=== PATIENT | male | born 1935 | race Two or more races ===

== ENCOUNTER 2017-01-27 11:12 | Inpatient (IN) | payer MEDICARE, MEDICAID ==
[~2017-01-27] VITALS: Ht 175.3 cm; Wt 80.3 kg
[2017-01-27] VITALS (36 sets, daily range): BP systolic 73–160; BP diastolic 35–87
--- NOTE | 2017-01-27 11:18 | NUR ---
PT BIB FAMILY TO ER BED 10. C/O BLACK STOOL THAT STARTED LAST WEEK. ALSO C/O BLE PAIN. DENIERS TRAUMA. GOWNED AND PLACED ON MONITOR. STABLE VITALS ROLLED SEAT TRIMMER. AWAITING MD LESLIE.
--- NOTE | 2017-01-27 11:40 | NUR ---
DR LOZADA AT BEDSIDE FOR EVAL.
--- NOTE | 2017-01-27 11:45 | NUR ---
IV LINE STARTED BLOOD DRAWN AND SENT TO LAB.
[2017-01-27 11:54] LABS: BASOPHILS # (AUTO) 0.1 /CMM (0.0-0.2); BASOPHILS % (AUTO) 0.7 % (0.0-2.0); EOSINOPHILS # (AUTO) 0.1 /CMM (0.0-0.7); EOSINOPHILS % (AUTO) 1.7 % (0.0-6.0); LYMPHOCYTES # (AUTO) 0.8 /CMM (0.8-4.8); LYMPHOCYTES % (AUTO) 9.8 % (20.0-44.0); MEAN CORPUSCULAR HEMOGLOBIN 26 PG (26.0-33.0); MEAN CORPUSCULAR HGB CONC 33 g/dl (31.0-36.0); MEAN CORPUSCULAR VOLUME 78 fL (80-96); MONOCYTES # (AUTO) 0.4 /CMM (0.1-1.30); MONOCYTES % (AUTO) 4.5 % (2.0-12.0); NEUTROPHILS # (AUTO) 7.1 /CMM (1.8-8.9); NEUTROPHILS % (AUTO) 83.3 % (43.0-81.0); PLATELET COUNT (AUTO) 246 /CMM (150-450); RDW COEFFICIENT OF VARIATION 19.4 (11.5-15.0); RED BLOOD CELL COUNT(AUTO) 2.37 MIL/uL (4.5-6.0); WHITE BLOOD COUNT (AUTO) 8.5 K/uL (4.3-11.0)
[2017-01-27] MEDS ORDERED: PANTOPRAZOLE 40 MG VIAL ONE ×2 (11:54→21:20)
[2017-01-27] MEDS ORDERED: ONDANSETRON HCL/PF 4 MG/2 ML VIAL ONE (11:54)
--- NOTE | 2017-01-27 11:55 | NUR ---
RADIOLOGY AT BEDSIDE FOR EVAL.
[2017-01-27 11:56] LABS: HEMOGLOBIN 6.1 g/dL (13.5-17.5)
[2017-01-27 11:57] LABS: HEMATOCRIT 19 % (39-51)
[2017-01-27] MEDS ORDERED: MEMA1CAP2 PO (11:57)
[2017-01-27] MEDS ORDERED: SPIR25TA PO (11:57)
[2017-01-27] MEDS ORDERED: VORT20TA PO (11:57)
[2017-01-27] MEDS ORDERED: TAMS0.4C34 PO (11:57)
[2017-01-27] MEDS ORDERED: LINA5TAB PO (11:57)
[2017-01-27] MEDS ORDERED: RIVA10TA PO (11:57)
[2017-01-27] MEDS ORDERED: OLME1TAB3 PO (11:57)
[2017-01-27] MEDS ORDERED: ROSU5TAB PO (11:57)
[2017-01-27] MEDS ORDERED: LORA1TAB PO (11:57)
[2017-01-27] MEDS ORDERED: PANTOPRAZOLE 40 MG VIAL IV ONE (12:00)
[2017-01-27] MEDS ORDERED: ONDANSETRON HCL/PF 4 MG/2 ML VIAL IVP ONE (12:00)
[2017-01-27 12:03] LABS: INR 0.96 (0.87-1.13)
[2017-01-27 12:05] LABS: ALANINE AMINOTRANSFERASE 6 U/L (12-78); ALBUMIN 3.5 g/dL (3.4-5.0); ALKALINE PHOSPHATASE 59 U/L (46-116); ASPARTATE AMINOTRANSFERASE 9 U/L (15-37); BILIRUBIN,DIRECT 0.1 mg/dL (0.0-0.2); BILIRUBIN,TOTAL 0.2 mg/dL (0.2-1.0); CARBON DIOXIDE 13 mmol/L (21-32); CHLORIDE 117 mmol/L (98-107); CREATININE 4.7 mg/dL (0.6-1.3); GLUCOSE 189 mg/dL (74-106); LIPASE 1057 U/L (73-393); SODIUM SERUM 140 mmol/L (136-145); TOTAL PROTEIN, SERUM 6.4 g/dL (6.4-8.2); UREA NITROGEN, BLOOD 73 mg/dL (7-18)
[2017-01-27 12:07] LABS: TROPONIN I 0.025 ng/mL (0.00-0.056)
[2017-01-27 12:08] LABS: POTASSIUM 7.2 mmol/L (3.5-5.1)
--- NOTE | 2017-01-27 12:11 | NUR ---
CALLED GI FRAME CATCHER DR CAVAZOS, ON THE PHONE WITH DR LOZADA.
--- NOTE | 2017-01-27 12:21 | NUR ---
CALLED [facility], AGRICULTURAL EDUCATION INSTRUCTOR WAS PAGED.
[2017-01-27] MEDS ORDERED: IV NS 0.9% 1,000 ML BAG IV ONE (12:30)
[2017-01-27 12:57] LABS: BAND % (MANUAL) 4 % (0.0-5.0); EOSINOPHILS % (MANUAL) 2 % (0-4); LYMPHOCYTES % (MANUAL) 6 % (16-48); MONOCYTES % (MANUAL) 1 % (0-11.0); NEUTROPHILS % (MANUAL) 87 (42-76)
[2017-01-27] MEDS ORDERED: ONDANSETRON HCL/PF 4 MG/2 ML VIAL IVP PRN (13:00)
[2017-01-27] MEDS ORDERED: MAGNESIUM HYDROXIDE 30 ML UDC PO PRN (13:00)
[2017-01-27] MEDS ORDERED: ACETAMINOPHEN 325 MG TABLET PO PRN (13:00)
[2017-01-27] MEDS ORDERED: MAG HYDROX/AL HYDROX/SIMETH 30 ML UDC PO PRN (13:00)
[2017-01-27] MEDS ORDERED: Z GUARD REMEDY 2 OZ OINT TP PRN (13:00)
[2017-01-27 13:38] LABS: APPEARANCE,URINE CLEAR (CLEAR); BILIRUBIN,URINE NEGATIVE (NEGATIVE); BLOOD, URINE 1+ Ery/uL (NEGATIVE); COLOR,URINE YELLOW (YELLOW); KETONES,URINE NEGATIVE (NEGATIVE); LEUKOCYTE ESTERASE ,URINE NEGATIVE (NEGATIVE); NITRITE, URINE NEGATIVE (NEGATIVE); PH,URINE 5.5 (5.0-8.0); PROTEIN,URINE 2+ mg/dl (NEGATIVE); UGLUCOSE NEGATIVE (NEGATIVE); UROBILINOGEN,URINE 0.2 EU/dL (0.2)
--- NOTE | 2017-01-27 13:39 | NUR ---
REPORT TO ADRIANA. PT TRANSFERED TO ICU. STABLE CONDITION.
--- NOTE | 2017-01-27 13:45 | NUR ---
SALES REPRESENTATIVE GAS SERVICE RECEIVED PATIENT FROM ER ON [facility]. PATIENT IS ALERT AND ORIENTED X 4. QATARI SPEAKING BUT UNDERSTANDS [place]. FAMILY AT BEDSIDE. LABS REDRAWN PER MD ORDER. STABLE VITAL SIGNS. AFEBRILE.
[2017-01-27 14:01] LABS: BACTERIA,URINE None seen /HPF (None Seen); SQUAMOUS EPITHELIAL CELL,UR Few /HPF (None Seen); WBC,URINE 0-2 /HPF (0-3)
[2017-01-27 14:17] LABS: BASOPHILS # (AUTO) 0.1 /CMM (0.0-0.2); BASOPHILS % (AUTO) 1.5 % (0.0-2.0); EOSINOPHILS # (AUTO) 0.1 /CMM (0.0-0.7); EOSINOPHILS % (AUTO) 1.4 % (0.0-6.0); LYMPHOCYTES # (AUTO) 1.3 /CMM (0.8-4.8); LYMPHOCYTES % (AUTO) 13.2 % (20.0-44.0); MEAN CORPUSCULAR HEMOGLOBIN 25 PG (26.0-33.0); MEAN CORPUSCULAR HGB CONC 31 g/dl (31.0-36.0); MEAN CORPUSCULAR VOLUME 79 fL (80-96); MONOCYTES # (AUTO) 0.7 /CMM (0.1-1.30); MONOCYTES % (AUTO) 7.1 % (2.0-12.0); NEUTROPHILS # (AUTO) 7.4 /CMM (1.8-8.9); NEUTROPHILS % (AUTO) 76.8 % (43.0-81.0); PLATELET COUNT (AUTO) 228 /CMM (150-450); RED BLOOD CELL COUNT(AUTO) 2.43 MIL/uL (4.5-6.0); WHITE BLOOD COUNT (AUTO) 9.6 K/uL (4.3-11.0)
[2017-01-27 14:27] LABS: HEMATOCRIT 19 % (39-51); HEMOGLOBIN 5.9 g/dL (13.5-17.5)
[2017-01-27 14:35] LABS: CALCIUM, SERUM 7.9 mg/dL (8.5-10.1); CARBON DIOXIDE 12 mmol/L (21-32); CHLORIDE 121 mmol/L (98-107); CREATININE 4.5 mg/dL (0.6-1.3); GLUCOSE 157 mg/dL (74-106); SODIUM SERUM 145 mmol/L (136-145); UREA NITROGEN, BLOOD 72 mg/dL (7-18)
[2017-01-27 14:37] LABS: POTASSIUM 6.9 mmol/L (3.5-5.1)
[2017-01-27] MEDS: IV NS 0.9% 1,000 ML IV PRN (15:30)
[2017-01-27] MEDS: LORAZEPAM 1 MG TABLET PO PRN (15:34)
[2017-01-27] MEDS ORDERED: SODIUM POLYSTYRENE SULFONATE 15 G/60 ML BOTTLE PO ONE (16:00)
--- NOTE | 2017-01-27 16:00 | NUR ---
RESIDENT CARE DIRECTOR ATIVAN PO 1MG X 1 GIVEN FOR ANXIETY MANIFESTED BY TRYING TO GET OOB WITHOUT ASSISTANCE. FAMILY AWARE.
[2017-01-27 20:20] LABS: HEMOGLOBIN 7.7 g/dL (13.5-17.5)
--- NOTE | 2017-01-27 20:24 | NUR ---
RN:ICU: PT RECEIVED IN BED A/O X3. PT AFEBRILE. PT GIVEN KAYEXALATE BY DAYSHIFT FOR HYPERKALEMIA AND IS CURRENTLY SITTING ON BSC. PT CONTROLLED AF ON MONITOR. PT HAD 1 MODERATE LIQUID BM, NO TRES BLOOD NOTED. PT CLEANED AND LINENS CHANGED. PT DENIES ANY PAIN OR SOB. IV SITES INTACT. NS AT 100ML/HR RUNNING. PENDING TIMED H/H, NO PARAMETERS FOR TX. CT ABD/PELVIS ORDERED FOR AM. FAMILY UPDATED REGARDING POC. VSS. WILL CONTINUE TO MONITOR CLOSELY.
--- NOTE | 2017-01-27 20:39 | NUR ---
RN:ICU: NEW H/H RESULTS FROM 1999 REPORTED TO MD LABORATORY EQUIPMENT CLEANER. NO NEW ORDERS FOR BLOOD TX. WILL RECHECK IN AM. PER NURSING SUP PT IS ON SX SCHEDULE FOR EDG AT 1100 TOMORROW. WILL VERIFY WITH FAMILY AND PT, CONSENT IS NOT LOCATED IN CHART. WILL F/U.
[2017-01-27] MEDS: PANTOPRAZOLE 40 MG VIAL IV SCH (21:30)
[2017-01-27] MEDS: ATORVASTATIN 10 MG TABLET PO SCH (21:38)
[2017-01-27] MEDS: TAMSULOSIN 0.4 MG CAP.SR.24H PO SCH (21:38)
[2017-01-27] MEDS ORDERED: Medication Not On Formulary EA (Rosuvastatin Calcium (Crestor) 5 MG) PO SCH (22:00)
--- NOTE | 2017-01-27 22:15 | NUR ---
RN:ICU: PER NURSING SUP PT IS SCHEDULED FOR EGD IN AM. VERIFIED CONSENT FOR EGD WITH TWO RN. SPOKE WITH PT SON REGARDING THE PROCEDURE AND HE AGREES TO THE PROCEDURE. PER SON PT IS AWARE OF PROCEDURE AND AGREES. PT SON INFORMED WHEN THE EGD IS SCHEDULED IN AM. PT SON WILL ARRIVE BEFORE THIS TIME TO FURTHER EXPLAIN THE PROCEDURE. SPOKE WITH DR PATTON REGARDING PROCEDURE, NPO AFTER MIDNIGHT, TX 1 UNIT PRBC, CHANGE PROTONIX TO BID, ALONG WITH AM LABS. ORDERS CARRIED OUT. PT REMAINS NONCOMPLIANT TRYING TO USE BSC WITHOUT CALLING FOR NURSE. FALL PRECAUTIONS IN PLACE. PENDING 1 UNIT OF PRBC TO TRANSFUSE. BLOOD TX CONSENT IN CHART. VSS. WILL CONTINUE TO MONITOR CLOSELY.
[2017-01-27] MEDS ORDERED: *INSULIN REGULAR(HUMULIN R)HUM 100 UNIT/ML VIAL SQ PRN (22:30)
[2017-01-27] MEDS ORDERED: DEXTROSE 50%-WATER 50 ML DISP.SYRIN IV PRN (22:30)
[2017-01-27] MEDS: BLOOD SUGAR DIAGNOSTIC 1 EACH STRIP IN SCH (22:50)
[2017-01-28] VITALS (22 sets, daily range): BP systolic 132–166; BP diastolic 53–98
[2017-01-28] MEDS: LORAZEPAM 1 MG TABLET PO PRN (00:47)
--- NOTE | 2017-01-28 00:59 | NUR ---
RN:ICU: PT RESTLESS IN BED AND STANDING UP DESPITE INSTRUCTION TO STAY IN BED. PT REMOVING PULSE OX CABLE DESPITE FREQUENT REMINAL OF IMPORTANCE. PT GIVEN ATIVAN PRN PER MD ORDERS FOR RESTLESSNESS. FALL PRECAUTIONS IN PLACE.
[2017-01-28] MEDS: IV NS 0.9% 1,000 ML IV PRN (03:10)
--- NOTE | 2017-01-28 04:18 | NUR ---
RN:ICU: PT RESTING COMFORTABLY IN BED FOLLOWING ATIVAN ADMIN. COMPLETE BED BATH PERFORMED. PT KEPT NPO. AM LABS DRAWN. VSS. WILL CONTINUE TO MONITOR CLOSELY.
[2017-01-28 04:29] LABS: BASOPHILS # (AUTO) 0.1 /CMM (0.0-0.2); BASOPHILS % (AUTO) 1.7 % (0.0-2.0); EOSINOPHILS # (AUTO) 0.2 /CMM (0.0-0.7); EOSINOPHILS % (AUTO) 2.6 % (0.0-6.0); HEMATOCRIT 25 % (39-51); HEMOGLOBIN 8.1 g/dL (13.5-17.5); LYMPHOCYTES # (AUTO) 0.9 /CMM (0.8-4.8); LYMPHOCYTES % (AUTO) 11.9 % (20.0-44.0); MEAN CORPUSCULAR HEMOGLOBIN 27 PG (26.0-33.0); MEAN CORPUSCULAR HGB CONC 32 g/dl (31.0-36.0); MEAN CORPUSCULAR VOLUME 83 fL (80-96); MONOCYTES # (AUTO) 0.7 /CMM (0.1-1.30); MONOCYTES % (AUTO) 9.2 % (2.0-12.0); NEUTROPHILS # (AUTO) 5.7 /CMM (1.8-8.9); NEUTROPHILS % (AUTO) 74.6 % (43.0-81.0); PLATELET COUNT (AUTO) 195 /CMM (150-450); RDW COEFFICIENT OF VARIATION 19.9 (11.5-15.0); RED BLOOD CELL COUNT(AUTO) 3.06 MIL/uL (4.5-6.0); WHITE BLOOD COUNT (AUTO) 7.7 K/uL (4.3-11.0)
[2017-01-28 04:44] LABS: CALCIUM, SERUM 7.2 mg/dL (8.5-10.1); CARBON DIOXIDE 11 mmol/L (21-32); CHLORIDE 121 mmol/L (98-107); CREATININE 4.6 mg/dL (0.6-1.3); GLUCOSE 100 mg/dL (74-106); MAGNESIUM 1.9 mg/dL (1.8-2.4); PHOSPHORUS 5.4 mg/dL (2.5-4.9); POTASSIUM 5.6 mmol/L (3.5-5.1); SODIUM SERUM 145 mmol/L (136-145); UREA NITROGEN, BLOOD 64 mg/dL (7-18)
[2017-01-28 04:45] LABS: CHOLESTEROL 62 mg/dL (<200); HDL CHOLESTEROL 25 mg/dL (40-60); LDL 25 mg/dL (0-99); TRIGLYCERIDES 116 mg/dL (30-150)
[2017-01-28] MEDS: IV D5/ 0.9% NACL 1,000 ML IV PRN ×2 (05:23→18:53)
--- NOTE | 2017-01-28 05:30 | NUR ---
RN;ICU; DR GUTIERREZ NOTIFIED REGARDING POTASSIUM 5.6, EGD PROCEDURE FOR TODAY, H/H OF 8.1 S/P 1 UNIT PRBC, AND BLOOD GLUCOSE 100 WHILE PT NPO. ONLY NEW ORDER PROVIDED WAS TO CHANGE IVF D5NS WHILE NPO. PT BECOMING CONFUSED AND REMOVED ONE IV, NEW PIV INSERTED ON LEFT FA BY CHARGE NURSE. PT TOLERATED PROCEDURE. NO ACUTE DISTRESS NOTED. WILL CONTINUE TO MONITOR CLOSELY.
--- NOTE | 2017-01-28 06:52 | NUR ---
RN:ICU: PT HAVING DIFFICULTY URINATING. F/C PLACED PER MD ORDERS WITH 350ML OF CLEAR YELLOW URINE DRAINING. PLACING CONDE WAS SLIGHTLY DIFFICULT DUE TO PT HX OF BPH. PT ONLY REPORTED MINIMAL RELIEF AFTER F/C WAS PLACED. PT REPORTING A NEED TO STILL URINATE. ATTEMPTED TO USE BLADDER SCANNER TO DETERMINE IF PT STILL HAD RESIDUAL URINE, BLADDER SCANNER NOT WORKING. ATTEMPTED TO ASPIRATE URINE FROM F/C USING STERILE TECHNIQUE WITH SCANT AMOUNT OF URINE DRAINING. PT ASKED TO POINT TO WEAR THE PAIN IS AND HE POINTED TO INSERTION SITE OF F/C. WILL HAVE DAYSHIFT F/U REGARDING RENAL US. PT VSS. WILL ENDORSE CARE TO ONCOMING SHIFT.
--- NOTE | 2017-01-28 08:00 | NUR ---
ICU/RN INITIAL NOTES,AM RECEIVED REPORT FROM NIGHT NURSE. PT ALERT, AWAKE, WITH PERIODS OF CONFUSION. PT FOLLOWS COMMANDS. ON ROOM AIR, NO ACUTE DISTRESS NOTED. PT SCHEDULED FOR EGD THIS AM, CONSENT AND CHECKLIST IN CHART. PT CONTROLLED A.FIB ON TELE. CONDE IN PLACE DRAINING URINE. PT COMPLAINING OF CONDE AND SAYING IT IS UNCOMFORTABLE, PER MD WE NEED CONDE FOR STRICT INTAKE AND OUTPUT AND FOR URINARY RETENTION. EDUCATED THE PATIENT THE IMPORTANCE OF CONDE AND HE AGREED. REORIENTATION NEEDED. PT NPO AT THIS TIME. ONE UNIT TRANSFUSED OVERNIGHT, LABS STABLE. ALL NEEDS WILL BE MET, SAFETY MEASURES TAKEN, BED IN LOW POSITION, SIDE RAILS UP, CALL LIGHT WITHIN REACH.
[2017-01-28] MEDS: BLOOD SUGAR DIAGNOSTIC 1 EACH STRIP IN SCH ×4 (08:58→23:40)
[2017-01-28] MEDS: PANTOPRAZOLE 40 MG VIAL IV SCH ×2 (08:59→17:23)
[2017-01-28] MEDS: DONEPEZIL HCL PO SCH (09:00)
[2017-01-28] MEDS ORDERED: PANTOPRAZOLE 40 MG VIAL IV SCH (09:00)
[2017-01-28] MEDS: MEMANTINE HCL PO SCH (09:00)
--- NOTE | 2017-01-28 10:00 | NUR ---
ICU/RN: PT SEEN AND ASSESSED BY . ORDERS PLACED, WILL FOLLOW UP.
--- NOTE | 2017-01-28 11:00 | NUR ---
ICU/RN: PT TAKEN TO EGD, CONSENT IN CHART. PT NPO, VSS.
[2017-01-28] MEDS ORDERED: AMLODIPINE BESYLATE 5 MG TABLET PO SCH (11:30)
[2017-01-28] MEDS ORDERED: PEG 3350/NA SULF,BICARB,CL/KCL 4,000 ML BOTTLE PO ONE ×2 (12:30→18:42)
[2017-01-28 14:31] LABS: CALCIUM, SERUM 8.1 mg/dL (8.5-10.1); CARBON DIOXIDE 12 mmol/L (21-32); CHLORIDE 124 mmol/L (98-107); CREATININE 4.7 mg/dL (0.6-1.3); GLUCOSE 113 mg/dL (74-106); LIPASE 1017 U/L (73-393); POTASSIUM 5.3 mmol/L (3.5-5.1); SODIUM SERUM 150 mmol/L (136-145); UREA NITROGEN, BLOOD 64 mg/dL (7-18)
--- NOTE | 2017-01-28 15:00 | NUR ---
ICU/RN: PT SEEN AND ASSESSED BY . PER WE ARE NOT TO HAVE PT HAVE CT DONE WITH CONTRAST. INSTEAD MRI ORDERED. IF CT WITHOUT CONTRAST IS BENEFICIAL WE ARE TO DO THAT, IF NOT ENOUGH INFORMATION THEN MRI IS THE BEST OPTION. OTHERS ORDERS PLACED WELL, WILL FOLLOW THROUGH. DISCUSSED WITH PATIENT AND FAMILY.
[2017-01-28] MEDS: HYDROCODONE/APAP 5/325MG 1 EACH TABLET PO PRN (15:21)
[2017-01-28] MEDS: SODIUM BICARBONATE 650 MG TABLET PO SCH (17:39)
--- NOTE | 2017-01-28 18:16 | NUR ---
ICU/RN: REPORT ENDORSED TO LACEY HIRSCH. WILL TRANSFER TO ROOM 116.1. PT SCHEDULED FOR COLONOSCOPY IN AM, WILL START PREP AT MIDNIGHT. WILL TRANSFER WITH ACLS GUIDELINES
[2017-01-28 18:59] LABS: CREATININE, URINE 72.7 MG/DL (30.0-125.0)
--- NOTE | 2017-01-28 19:00 | NUR ---
RN NOTE PT AOX2-3, FAMILY AT BEDSIDE, ON KITCHEN STEWARDESS, AFIB, CONTROLLED 66, GOLYTELY SHOULD BE STARTED TO PREPARE PT FOR COLONOSCOPY TOMORROW. IV INTACT, F/C IN PLACE. WILL ENDORSE TO EMBEDDED LINUX DEVELOPER NURSE FOR MELISSA.
--- NOTE | 2017-01-28 20:00 | NUR ---
RN NOTES. RECEIVED THE PT REST ON THE BED. AWAKE, ALERT, FOLLOW COMMANDS. CONFUSED. SITTER AT BED SIDE. PT ON ROOM AIR. SAT 96%. NO ACUTE DISTRESS NOTED. EMERGENCY VETERINARY ASSISTANT SHOWING AFIB. CONTROLLED. FC PATENT. URINE DRAINING. IV RT AC 18G. IVF D5NS 50ML/H. WILL CONTINUE TO MONITOR VITALS.
[2017-01-28] MEDS: TAMSULOSIN 0.4 MG CAP.SR.24H PO SCH (23:32)
[2017-01-28] MEDS: ATORVASTATIN 10 MG TABLET PO SCH (23:32)
[2017-01-29] VITALS: BP 150/70
[2017-01-29] MEDS ORDERED: PEG 3350/NA SULF,BICARB,CL/KCL 4,000 ML BOTTLE PO ONE
[2017-01-29] MEDS: HYDROCODONE/APAP 5/325MG 1 EACH TABLET PO PRN (00:24)
--- NOTE | 2017-01-29 00:27 | NUR ---
PT C/O ABDOMENAL PAIN . NORCO GIVEN PER ORDERED.
--- NOTE | 2017-01-29 03:49 | NUR ---
RN NOTES. AM CARE, ORAL CARE, BED BATH GIVEN. LINEN CHANGED, REMAINING SAME IVF D5NS 50ML/H. IV RT HAND 18G. NPO FROM 0200. TODAY SCHEDULE FOR COLONOSCOPY. AFEFRILE. HOB ELEVATED. SITTER AT BED SIDE. WILL CONTINUE TO MONITOR VITALS.
[2017-01-29 04:00] VITALS: BP 150/69
--- NOTE | 2017-01-29 06:24 | NUR ---
RN NOTE PT NPO FROM 0200.
--- NOTE | 2017-01-29 07:12 | NUR ---
TEXTED FOR MRI APPROVAL.
[2017-01-29 07:17] LABS: CALCIUM, SERUM 7.9 mg/dL (8.5-10.1); CARBON DIOXIDE 15 mmol/L (21-32); CHLORIDE 123 mmol/L (98-107); CREATININE 4.4 mg/dL (0.6-1.3); GLUCOSE 128 mg/dL (74-106); LIPASE 729 U/L (73-393); MAGNESIUM 1.8 mg/dL (1.8-2.4); PHOSPHORUS 5.1 mg/dL (2.5-4.9); POTASSIUM 5.2 mmol/L (3.5-5.1); SODIUM SERUM 148 mmol/L (136-145); UREA NITROGEN, BLOOD 53 mg/dL (7-18)
[2017-01-29 07:18] LABS: BASOPHILS # (AUTO) 0.1 /CMM (0.0-0.2); BASOPHILS % (AUTO) 0.5 % (0.0-2.0); EOSINOPHILS # (AUTO) 0.2 /CMM (0.0-0.7); EOSINOPHILS % (AUTO) 1.5 % (0.0-6.0); HEMATOCRIT 26 % (39-51); HEMOGLOBIN 8.4 g/dL (13.5-17.5); LYMPHOCYTES # (AUTO) 0.7 /CMM (0.8-4.8); LYMPHOCYTES % (AUTO) 6.1 % (20.0-44.0); MEAN CORPUSCULAR HEMOGLOBIN 26 PG (26.0-33.0); MEAN CORPUSCULAR HGB CONC 32 g/dl (31.0-36.0); MEAN CORPUSCULAR VOLUME 81 fL (80-96); MONOCYTES # (AUTO) 0.9 /CMM (0.1-1.30); MONOCYTES % (AUTO) 8.5 % (2.0-12.0); NEUTROPHILS # (AUTO) 9.2 /CMM (1.8-8.9); NEUTROPHILS % (AUTO) 83.4 % (43.0-81.0); PLATELET COUNT (AUTO) 222 /CMM (150-450); RDW COEFFICIENT OF VARIATION 19.5 (11.5-15.0); RED BLOOD CELL COUNT(AUTO) 3.21 MIL/uL (4.5-6.0)
[2017-01-29] MEDS: BLOOD SUGAR DIAGNOSTIC 1 EACH STRIP IN SCH ×4 (07:30→21:28)
[2017-01-29 08:00] VITALS: BP 166/74
--- NOTE | 2017-01-29 08:00 | NUR ---
DR MONTAGUE AT BEDSIDE. PT STATES HE HAD PAIN DUE TO F/C FOR TWO DAYS. OK PRE DR KEATING TO D/C CONDE CATH.
--- NOTE | 2017-01-29 08:30 | NUR ---
AMAYA D/C PT VERBALIZES THAT DISCOMFORT IS IMPROVED.
[2017-01-29] MEDS: SODIUM BICARBONATE 650 MG TABLET PO SCH ×3 (09:00→17:00)
[2017-01-29] MEDS: MEMANTINE HCL PO SCH (09:00)
[2017-01-29] MEDS: AMLODIPINE BESYLATE 10 MG TABLET PO SCH (09:00)
[2017-01-29] MEDS: DONEPEZIL HCL PO SCH (09:00)
--- NOTE | 2017-01-29 09:00 | NUR ---
AC PELVIC CANCELED DUE TO ABNORMAL KIDNEY FUNCTION AND IV CONTRAST IS CONTRAINDICATED. KIRKLAND OBTAIN MRI.
--- NOTE | 2017-01-29 10:51 | NUR ---
MRI CHECKLIST COMPLETED WITH PT'S SON. SON STATED THAT PT HAS CARDIAC STENT PLACED 15-20 YEARS AGO[address] WITH [address] RYDER. OK TO CANCEL MRI. PLAN IS TO SCHEDULE NEW CT, ONCE KIDNEY FUNCTION GETS BETTER.
[2017-01-29 12:00] VITALS: BP 167/73
[2017-01-29] MEDS: hydrALAZINE HCL IV 20 MG VIAL IV PRN (13:13)
[2017-01-29] MEDS: PANTOPRAZOLE 40 MG VIAL IV SCH ×2 (13:17→17:23)
--- NOTE | 2017-01-29 14:30 | NUR ---
PT UNABLE TO URINATE. BLADDER SCANNER INDICATES 0 ML, HOWEVER LOWER ABD IS DISTENDED AND TENDER. GREER DERAS NOTIFIED OK F/CATH.
[2017-01-29] MEDS ORDERED: MORPHINE SULFATE INJ 2 MG/ML DISP.SYRIN IV ONE (15:00)
[2017-01-29] MEDS ORDERED: LIDOCAINE 2% JEL UROJET 10 ML MM ONE (15:00)
--- NOTE | 2017-01-29 15:00 | NUR ---
PT PER-MEDICATED WITH MORPHINE AND LIDOCAINE JELL, F/C #16 INSERTED , 700ML CLEAR YELLOW URINE OBTAINED
[2017-01-29 16:00] VITALS: BP 152/63
[2017-01-29] MEDS: IV D5/ 0.9% NACL 1,000 ML IV PRN (17:19)
[2017-01-29] MEDS ORDERED: SIMETHICONE SUSP 40 MG/0.6 ML BOTTLE ONE (19:49)
[2017-01-29 20:00] VITALS: BP 164/75
[2017-01-29] MEDS: LORAZEPAM 1 MG TABLET PO PRN (21:19)
[2017-01-29] MEDS: ATORVASTATIN 10 MG TABLET PO SCH (21:19)
[2017-01-29] MEDS: TAMSULOSIN 0.4 MG CAP.SR.24H PO SCH (21:19)
--- NOTE | 2017-01-29 23:24 | NUR ---
RN:TD: PT RECEIVED IN BED S/P COLONOSCOPY. PT CONFUSED AND REQUESTING TO GET OUT OF BED TO USE COMMODE. PT ASSISTED TO COMMODE WITH ASSISTANCE. PT STATES HE WANTS TO GO PEE BUT EDUCATED THAT HE HAS CONDE CATHETER. PT VERY UPSET SAYING HE NEEDS TO PEE. ATIVAN GIVEN PRN FOR RESTLESSNESS. PT ASSISTED BACK TO BED, BED BATH PROVIDED AND LINENS CHANGES. PT BP INITIALLY ELEVATION DUE TO AGITATION, WILL REASSESS BP 0000 TO DETERMINE IF PT REQUIRES ANTI-HTN MEDICATION. PT CURRENTLY RESTING COMFORTABLY. FALL PRECAUTIONS IN PLACE. IV INFUSING IN RIGHT AC. BS WNL. ALL UPDATES PROVIDED TO FAMILY. PT TO HAVE MRI IN AM TO FURTHER CHARACTERIZE RENAL MASS IDENTIFIED ON RENAL US. WILL CONTINUE TO MONITOR CLOSELY.
[2017-01-30] VITALS: BP 126/66
[2017-01-30 04:00] VITALS: BP 155/77
[2017-01-30 07:30] LABS: BASOPHILS # (AUTO) 0.1 /CMM (0.0-0.2); BASOPHILS % (AUTO) 0.7 % (0.0-2.0); EOSINOPHILS # (AUTO) 0.2 /CMM (0.0-0.7); EOSINOPHILS % (AUTO) 1.9 % (0.0-6.0); HEMATOCRIT 26 % (39-51); HEMOGLOBIN 8.2 g/dL (13.5-17.5); LYMPHOCYTES # (AUTO) 0.7 /CMM (0.8-4.8); LYMPHOCYTES % (AUTO) 8.4 % (20.0-44.0); MEAN CORPUSCULAR HEMOGLOBIN 26 PG (26.0-33.0); MEAN CORPUSCULAR HGB CONC 32 g/dl (31.0-36.0); MEAN CORPUSCULAR VOLUME 81 fL (80-96); MONOCYTES # (AUTO) 0.8 /CMM (0.1-1.30); MONOCYTES % (AUTO) 9.3 % (2.0-12.0); NEUTROPHILS # (AUTO) 6.8 /CMM (1.8-8.9); NEUTROPHILS % (AUTO) 79.7 % (43.0-81.0); PLATELET COUNT (AUTO) 233 /CMM (150-450); RDW COEFFICIENT OF VARIATION 20.2 (11.5-15.0); RED BLOOD CELL COUNT(AUTO) 3.18 MIL/uL (4.5-6.0); WHITE BLOOD COUNT (AUTO) 8.6 K/uL (4.3-11.0)
[2017-01-30 07:52] LABS: CALCIUM, SERUM 7.9 mg/dL (8.5-10.1); CARBON DIOXIDE 15 mmol/L (21-32); CHLORIDE 125 mmol/L (98-107); CREATININE 4.2 mg/dL (0.6-1.3); GLUCOSE 128 mg/dL (74-106); LIPASE 451 U/L (73-393); MAGNESIUM 1.8 mg/dL (1.8-2.4); PHOSPHORUS 4.7 mg/dL (2.5-4.9); POTASSIUM 4.7 mmol/L (3.5-5.1); SODIUM SERUM 152 mmol/L (136-145); UREA NITROGEN, BLOOD 47 mg/dL (7-18)
[2017-01-30] MEDS: BLOOD SUGAR DIAGNOSTIC 1 EACH STRIP IN SCH ×4 (07:59→21:58)
[2017-01-30 08:00] VITALS: BP 155/77
--- NOTE | 2017-01-30 08:00 | NUR ---
MICHELLE INITIAL NOTES,AM RECEIVED REPORT FROM NIGHT NURSE. PT ALERT, AWAKE, WITH PERIODS OF CONFUSION. PT FOLLOWS COMMANDS. ON ROOM AIR, NO ACUTE DISTRESS NOTED. PT CONTROLLED A.FIB ON TELE. CONDE IN PLACE DRAINING URINE. PER MD WE NEED CONDE FOR STRICT INTAKE AND OUTPUT AND FOR URINARY RETENTION. SITTER AT BEDSIDE ALL NEEDS WILL BE MET, SAFETY MEASURES TAKEN, BED IN LOW POSITION, SIDE RAILS UP, CALL LIGHT WITHIN REACH.
[2017-01-30] MEDS: PANTOPRAZOLE 40 MG VIAL IV SCH ×2 (08:07→17:44)
[2017-01-30] MEDS: SODIUM BICARBONATE 650 MG TABLET PO SCH ×3 (08:07→17:44)
[2017-01-30] MEDS: DONEPEZIL HCL PO SCH (08:08)
[2017-01-30] MEDS: MEMANTINE HCL PO SCH (08:08)
[2017-01-30] MEDS: AMLODIPINE BESYLATE 10 MG TABLET PO SCH (08:13)
[2017-01-30 08:15] LABS: IRON, SERUM 15 ug/dl (50-175); TOTAL IRON BINDING CAPACITY 293 ug/dl (250-450)
[2017-01-30 12:00] VITALS: BP 133/78
--- NOTE | 2017-01-30 12:00 | NUR ---
MICHELLE/RN: PT BACK FROM CT, IMAGING DONE, VSS. WILL CONTINUE TO MONITOR AND ASSESS
[2017-01-30] MEDS: INSULIN REGULAR, HUMAN 100 UNIT/ML 3 ML VIAL SQ PRN (12:55)
[2017-01-30] MEDS: RIVAROXABAN 10 MG TABLET PO SCH (12:57)
--- NOTE | 2017-01-30 13:20 | NUR ---
MICHELLE/RN: MD ROUNDS DONE, NEW ORDERS RECEIVED. WILL CARRYOUT. WILL CONTINUE TO MONITOR AND ASSESS
[2017-01-30 16:00] VITALS: BP 142/69
--- NOTE | 2017-01-30 18:51 | NUR ---
MICHELLE/RN ENDING NOTES,AM REPORT WILL BE ENDORSED TO NIGHT NURSE FOR CONTINUATION OF CARE. ALL NEEDS MET, PT RESTING COMFORTABLY IN BED. ON ROOM AIR, NO DISTRESS NOTED. SAFETY MEASURES TAKEN, BED IN LOW POSITION, SIDE RAILS UP, CALL LIGHT WITHIN REACH. WILL CONTINUE CARE.
[2017-01-30 20:00] VITALS: BP 139/71
[2017-01-30] MEDS: ATORVASTATIN 10 MG TABLET PO SCH (21:55)
[2017-01-30] MEDS: TAMSULOSIN 0.4 MG CAP.SR.24H PO SCH (21:55)
[2017-01-30] MEDS: hydrALAZINE HCL IV 20 MG VIAL IV PRN ×3 (22:14→22:21)
[2017-01-31] VITALS (7 sets, daily range): BP systolic 121–179; BP diastolic 60–89
--- NOTE | 2017-01-31 06:29 | NUR ---
END OF SHIFT SUMMERY: pt is A&O X 4. in a stable condition, on room air, saturating well. connected to the campus monitor, NSR-A.Fib . no acute respiratory/cardiac distress noted. will endorse pt to AM shift nurse to continue the care.
[2017-01-31] MEDS: BLOOD SUGAR DIAGNOSTIC 1 EACH STRIP IN SCH ×4 (06:30→21:01)
[2017-01-31 07:20] LABS: BASOPHILS % (AUTO) 0.4 % (0.0-2.0); EOSINOPHILS # (AUTO) 0.2 /CMM (0.0-0.7); EOSINOPHILS % (AUTO) 1.8 % (0.0-6.0); HEMATOCRIT 25 % (39-51); HEMOGLOBIN 7.9 g/dL (13.5-17.5); LYMPHOCYTES # (AUTO) 0.7 /CMM (0.8-4.8); LYMPHOCYTES % (AUTO) 7.7 % (20.0-44.0); MEAN CORPUSCULAR HEMOGLOBIN 26 PG (26.0-33.0); MEAN CORPUSCULAR HGB CONC 32 g/dl (31.0-36.0); MEAN CORPUSCULAR VOLUME 81 fL (80-96); MONOCYTES # (AUTO) 0.7 /CMM (0.1-1.30); NEUTROPHILS # (AUTO) 7.4 /CMM (1.8-8.9); NEUTROPHILS % (AUTO) 82.1 % (43.0-81.0); PLATELET COUNT (AUTO) 223 /CMM (150-450); RDW COEFFICIENT OF VARIATION 20.3 (11.5-15.0); RED BLOOD CELL COUNT(AUTO) 3.03 MIL/uL (4.5-6.0)
[2017-01-31 07:25] LABS: CALCIUM, SERUM 7.6 mg/dL (8.5-10.1); CARBON DIOXIDE 17 mmol/L (21-32); CHLORIDE 118 mmol/L (98-107); CREATININE 3.9 mg/dL (0.6-1.3); GLUCOSE 125 mg/dL (74-106); LIPASE 400 U/L (73-393); MAGNESIUM 1.4 mg/dL (1.8-2.4); PHOSPHORUS 3.7 mg/dL (2.5-4.9); SODIUM SERUM 146 mmol/L (136-145); UREA NITROGEN, BLOOD 40 mg/dL (7-18)
[2017-01-31] MEDS: SODIUM BICARBONATE 650 MG TABLET PO SCH ×3 (09:12→17:09)
[2017-01-31] MEDS: PANTOPRAZOLE 40 MG VIAL IV SCH ×2 (09:12→17:12)
[2017-01-31] MEDS: AMLODIPINE BESYLATE 10 MG TABLET PO SCH (09:14)
[2017-01-31 10:02] LABS: RETICULOCYTE COUNT 3.1 % (0.6-2.5)
[2017-01-31 10:23] LABS: THYROID STIMULATING HORMONE 1.909 uIU/mL (0.358-3.74)
[2017-01-31] MEDS: INSULIN REGULAR, HUMAN 100 UNIT/ML 3 ML VIAL SQ PRN ×2 (12:23→17:23)
[2017-01-31] MEDS: DONEPEZIL HCL PO SCH (12:24)
[2017-01-31] MEDS: MEMANTINE HCL PO SCH (12:24)
[2017-01-31] MEDS: RIVAROXABAN 10 MG TABLET PO SCH (17:09)
--- NOTE | 2017-01-31 20:32 | NUR ---
PARTY PLAN SELLING DISTRIBUTOR INITIAL NOTES RECEIVED REPORT FROM AM NURSE. PT ALERT, AWAKE, WITH PERIODS OF CONFUSION. PT FOLLOWS COMMANDS. ON ROOM AIR, NO ACUTE DISTRESS NOTED. PT CONTROLLED A.FIB ON TELE. CONDE IN PLACE DRAINING URINE. PER MD WE NEED CONDE FOR STRICT INTAKE AND OUTPUT AND FOR URINARY RETENTION. SITTER AT BEDSIDE ALL NEEDS WILL BE MET, SAFETY MEASURES TAKEN, BED IN LOW POSITION, SIDE RAILS UP, CALL LIGHT WITHIN REACH.
[2017-01-31] MEDS: TAMSULOSIN 0.4 MG CAP.SR.24H PO SCH (21:01)
[2017-01-31] MEDS: ATORVASTATIN 10 MG TABLET PO SCH (21:01)
[2017-02-01] VITALS: BP 127/47
[2017-02-01 04:00] VITALS: BP 134/84
--- NOTE | 2017-02-01 06:31 | NUR ---
LINE PAINTING MACHINE OPERATOR CLOSING NOTES ENDORSED REPORT TO AM NURSE. PT ALERT, AWAKE, WITH PERIODS OF CONFUSION. PT FOLLOWS COMMANDS. ON ROOM AIR, NO ACUTE DISTRESS NOTED. PT CONTROLLED A.FIB ON TELE. CONDE IN PLACE DRAINING URINE. PER MD WE NEED CONDE FOR STRICT INTAKE AND OUTPUT AND FOR URINARY RETENTION. SITTER AT BEDSIDE ALL NEEDS WILL BE MET, SAFETY MEASURES TAKEN, BED IN LOW POSITION, SIDE RAILS UP, CALL LIGHT WITHIN REACH.
[2017-02-01 08:00] VITALS: BP 137/73
--- NOTE | 2017-02-01 08:00 | NUR ---
TELE1/RN AM SHIFT INITIAL NOTES RECEIVED PT ASLEEP IN BED, AROUSEABLE. PT A/O X 3, DENIES ANY SYMPTOMS, NO CHANGE OF CONDITION OR ACUTE BLEEDING NOTED. ON ROOM AIR SATURATING @ 95%, ON TELE MONITORING WITH CONTROLLED A-FIB, HR 78. IV SITE FLUSHED, PATENT WITH NO S/S OF INFECTION, SL. PT IS COMFORTABLE. SCHEDULED AM MEDS TO BE GIVEN. CL WITHIN REACHED AND SAFETY MAINTAINED. ON GOING MONITORING.
[2017-02-01] MEDS: BLOOD SUGAR DIAGNOSTIC 1 EACH STRIP IN SCH ×2 (08:19→12:18)
[2017-02-01] MEDS: PANTOPRAZOLE 40 MG VIAL IV SCH (09:43)
[2017-02-01] MEDS: AMLODIPINE BESYLATE 10 MG TABLET PO SCH (09:43)
[2017-02-01] MEDS: SODIUM BICARBONATE 650 MG TABLET PO SCH ×2 (09:44→12:25)
[2017-02-01] MEDS: MEMANTINE HCL PO SCH (09:49)
[2017-02-01] MEDS: DONEPEZIL HCL PO SCH (09:49)
--- NOTE | 2017-02-01 11:45 | NUR ---
TELE1/RN ROUNDS - DR. SANCHES PT SEEN & EXAMINED BY DR. SANCHES. NO NEW ORDERS RECEIVED, BUT NOTIFIED ME THAT SHE HAVE ARRANGED APPOINTMENT FOR PT AFTER DISCHARGE HERE IN THE HOSPITAL. MONITORING CONTINUED.
[2017-02-01 12:00] VITALS: BP 151/67
[2017-02-01] MEDS: INSULIN REGULAR, HUMAN 100 UNIT/ML 3 ML VIAL SQ PRN (12:27)
--- NOTE | 2017-02-01 13:37 | NUR ---
TELE1/RN ROUNDS - GREER LUU. PT SEEN & EXAMINED BY BRAKESHOE REPAIRER, MS. LUU. NOTIFIED ME THAT PT WILL BE DISCHARGE HOME TODAY. NOTED. MONITORING CONTINUED.
[2017-02-01] MEDS ORDERED: AMLO10TA2 PO (13:39)
[2017-02-01] MEDS ORDERED: SODI650T PO (13:39)
--- NOTE | 2017-02-01 14:30 | NUR ---
TELE1/SMALL ANIMAL CARETAKER - HOME DISCHARGE INSTRUCTIONS GIVEN TO PT'S SON, VERBALIZED UNDERSTANDING. DISCHARGE DOCUMENTS INCLUDING PRESCRIPTION WAS GIVEN TO PT'S SON. ALSO REMINDED OF THE APPOINTMENT WITH DR. SANCHES AND TO ALSO FOLLOW-UP WITH DR. CHEN. IB BAND REMOVED, IV SITE REMOVED, PRESSURE DRESSING APPLIED, NO S/S OF INFECTION. PERSONAL BELONGINGS, INCLUDING PT'S OWN MEDICATION RETURNED, INVENTORY LOG SIGNED OFF. PT LEFT TELE1 UNIT IN STABLE CONDITION VIA WHEELCHAIR ACCOMPANIED BY PT'S SON, AND CHARGE NURSE TO AN AWAITING PRIVATE CAR.
[2017-02-02 13:08] LABS: HAPTOGLOBIN 103 mg/dL (34-200)
[2017-02-03 07:07] LABS: *SPE A/G RATIO 1.5 (0.7-1.7); *SPE ALPHA-1-GLOBULIN 0.3 g/dL (0.0-0.4); *SPE ALPHA-2-GLOBULIN 0.6 g/dL (0.4-1.0); *SPE BETA GLOBULIN 0.6 g/dL (0.7-1.3); *SPE M-SPIKE Not Observed g/dL (Not Observed); *SPEGAMMA GLOBULIN 0.5 g/dL (0.4-1.8)
== END 2017-02-01 14:26 | disposition home or self-care (01) | DRG 391 ==
LOC: ER 11:14 → ICU 12:35 → TELE-TD 01-28 18:33 → TELE1 01-30 13:34
PROVIDERS: ADMIT Internal Medicine; ATTEND Internal Medicine
PROC: 30233N1 Transfusion of Nonautologous Red Blood Cells into Peripheral Vein, Percutaneous Approach (ICD-10-PCS; principal; 2017-01-27)
PROC: 0DD58ZX Extraction of Esophagus, Via Natural or Artificial Opening Endoscopic, Diagnostic (ICD-10-PCS; 2017-01-28)
PROC: 0DD68ZX Extraction of Stomach, Via Natural or Artificial Opening Endoscopic, Diagnostic (ICD-10-PCS; 2017-01-28)
PROC: 0DBK8ZX Excision of Ascending Colon, Via Natural or Artificial Opening Endoscopic, Diagnostic (ICD-10-PCS; 2017-01-29)
PROC: 0DBL8ZX Excision of Transverse Colon, Via Natural or Artificial Opening Endoscopic, Diagnostic (ICD-10-PCS; 2017-01-29)
PROC: 0DBN8ZX Excision of Sigmoid Colon, Via Natural or Artificial Opening Endoscopic, Diagnostic (ICD-10-PCS; 2017-01-29)
PROC: 0DBH8ZX Excision of Cecum, Via Natural or Artificial Opening Endoscopic, Diagnostic (ICD-10-PCS; 2017-01-29)
DX: K29.70 Gastritis, unspecified, without bleeding (principal); N17.0 Acute kidney failure with tubular necrosis; I50.31 Acute diastolic (congestive) heart failure; K85.90 Acute pancreatitis without necrosis or infection, unspecified; E87.2 Acidosis; E11.22 Type 2 diabetes mellitus with diabetic chronic kidney disease; C64.9 Malignant neoplasm of unspecified kidney, except renal pelvis; E87.5 Hyperkalemia; D63.1 Anemia in chronic kidney disease; I13.0 Hypertensive heart and chronic kidney disease with heart failure and stage 1 through stage 4 chronic kidney disease, or unspecified chronic kidney disease; Z87.891 Personal history of nicotine dependence; Z86.73 Personal history of transient ischemic attack (TIA), and cerebral infarction without residual deficits; Z79.01 Long term (current) use of anticoagulants; Z79.899 Other long term (current) drug therapy; I11.0 Hypertensive heart disease with heart failure; I25.10 Atherosclerotic heart disease of native coronary artery without angina pectoris; N18.9 Chronic kidney disease, unspecified; I70.0 Atherosclerosis of aorta; F41.9 Anxiety disorder, unspecified; K21.9 Gastro-esophageal reflux disease without esophagitis; K63.5 Polyp of colon; E78.5 Hyperlipidemia, unspecified; K64.8 Other hemorrhoids; N40.0 Benign prostatic hyperplasia without lower urinary tract symptoms; E03.9 Hypothyroidism, unspecified; K22.8 Other specified diseases of esophagus; I48.91 Unspecified atrial fibrillation
CPT/HCPCS: 36415; 71010-TC; 71250-TC; 76770-TC; 80048-TC; 80061-TC; 80076-TC; 81000-TC; 82306; 82570-TC; 82728-TC; 82746; 82962-TC; 83010; 83540-TC; 83615-TC; 83690-TC; 83735-TC; 84100-TC; 84155; 84165; 84300-TC; 84443-TC; 84484-TC; 84550-TC; 85025-TC; 85027-TC; 85045-TC; 85652-TC; 85730-TC; 86850-TC; 86921-TC; 87081-TC; 88305-TC; 88313-TC; 88342; 93307-TC; 97110-TC; 97116-TC; 97530-TC; A4217; A4606; C9113; J0360; J1815; J2270; J2405; J2704; J3490; J7030; J7042; J7050; J7070; P9016-BL; Z7610

== ENCOUNTER 2017-03-29 16:26 | Inpatient (IN) | payer MEDICARE, MEDICAID ==
[2017-03-29] VITALS (19 sets, daily range): BP systolic 121–171; BP diastolic 59–89
[~2017-03-29] VITALS: Ht 172.7 cm; Wt 75.3 kg
[~2017-03-29 16:26] MED LIST: AMLO10TA2 PO; LINA5TAB PO; LORA1TAB PO; MEMA1CAP2 PO; RIVA10TA PO; ROSU5TAB PO; SODI650T PO; TAMS0.4C34 PO; VORT20TA PO
--- NOTE | 2017-03-29 16:30 | NUR ---
PTCW119 FROM HOME: WEAKNESS, NAUSEA, VOMITING, FEVER. NO FEVER UPON ARRIVAL TO ER. A/OX 3. BREATHING EVEN AND UNLABORED. NO SOB. VITALS STABLE. SAFETY AND COMFORT MEASURES IN PLACE. IV INTACT ON LAC, 18 G. AWAITING MD ORDERS.
[2017-03-29] MEDS ORDERED: IV NS 0.9% 1,000 ML BAG IV ONE (17:00)
--- NOTE | 2017-03-29 17:05 | NUR ---
overhead crane technician at bedside for blood draw.
--- NOTE | 2017-03-29 17:15 | NUR ---
legal technician at bedside.
[2017-03-29 17:23] LABS: EOSINOPHILS # (AUTO) 0.1 /CMM (0.0-0.7)
[2017-03-29 17:25] LABS: BASOPHILS % (AUTO) 0.4 % (0.0-2.0); HEMATOCRIT 25 % (39-51); LYMPHOCYTES # (AUTO) 0.7 /CMM (0.8-4.8); LYMPHOCYTES % (AUTO) 7.2 % (20.0-44.0); MEAN CORPUSCULAR HEMOGLOBIN 24 PG (26.0-33.0); MEAN CORPUSCULAR HGB CONC 32 g/dl (31.0-36.0); MEAN CORPUSCULAR VOLUME 74 fL (80-96); MONOCYTES # (AUTO) 0.6 /CMM (0.1-1.30); MONOCYTES % (AUTO) 6.6 % (2.0-12.0); NEUTROPHILS % (AUTO) 84.8 % (43.0-81.0); PLATELET COUNT (AUTO) 273 /CMM (150-450); RDW COEFFICIENT OF VARIATION 17.7 (11.5-15.0); RED BLOOD CELL COUNT(AUTO) 3.38 MIL/uL (4.5-6.0); WHITE BLOOD COUNT (AUTO) 9.4 K/uL (4.3-11.0)
[2017-03-29 17:26] LABS: CALCIUM, SERUM 7.6 mg/dL (8.5-10.1); CARBON DIOXIDE 20 mmol/L (21-32); CHLORIDE 112 mmol/L (98-107); GLUCOSE 126 mg/dL (74-106); INR 1.22 (0.87-1.13); POTASSIUM 5.3 mmol/L (3.5-5.1); PROTHROMBIN TIME 12.7 SECS (9.5-12.7); SODIUM SERUM 141 mmol/L (136-145); UREA NITROGEN, BLOOD 62 mg/dL (7-18)
[2017-03-29 17:29] LABS: TROPONIN I 0.023 ng/mL (0.00-0.056)
[2017-03-29] MEDS ORDERED: IV NS 0.9% 500 ML BAG IV ONE (17:30)
[2017-03-29 17:32] LABS: ALANINE AMINOTRANSFERASE 15 U/L (12-78); ALBUMIN 3.6 g/dL (3.4-5.0); ALKALINE PHOSPHATASE 66 U/L (46-116); ASPARTATE AMINOTRANSFERASE 9 U/L (15-37); BILIRUBIN,DIRECT 0.1 mg/dL (0.0-0.2); BILIRUBIN,TOTAL 0.3 mg/dL (0.2-1.0); TOTAL PROTEIN, SERUM 6.9 g/dL (6.4-8.2)
[2017-03-29] MEDS ORDERED: DILTIAZEM HCL 25 MG IV ONE (17:48)
[2017-03-29 17:51] LABS: APPEARANCE,URINE Clear (CLEAR); BILIRUBIN,URINE Negative (NEGATIVE); BLOOD, URINE Moderate Ery/uL (NEGATIVE); COLOR,URINE Yellow (YELLOW); KETONES,URINE Negative (NEGATIVE); LEUKOCYTE ESTERASE ,URINE Negative (NEGATIVE); NITRITE, URINE Negative (NEGATIVE); PROTEIN,URINE >=300 mg/dl (NEGATIVE); UGLUCOSE Negative (NEGATIVE); UROBILINOGEN,URINE 0.2 EU/dL (0.2)
[2017-03-29] MEDS ORDERED: DILTIAZEM HCL 25 MG IV IV ONE ×2 (18:00→18:30)
[2017-03-29 18:02] LABS: WBC,URINE 0-2 /HPF (0-3)
[2017-03-29 18:03] LABS: BACTERIA,URINE Few /HPF (None Seen); SQUAMOUS EPITHELIAL CELL,UR Moderate /HPF (None Seen)
[2017-03-29] MEDS ORDERED: NITROGLYCERIN 0.4 MG/TAB BOTTLE ONE (18:24)
--- NOTE | 2017-03-29 18:27 | NUR ---
ICU 254 - AFTER 7PM
[2017-03-29] MEDS ORDERED: ONDANSETRON HCL/PF 4 MG/2 ML VIAL IVP PRN (18:30)
[2017-03-29] MEDS ORDERED: HYDROCODONE/APAP 5/325MG 1 EACH TABLET PO PRN (18:30)
[2017-03-29] MEDS ORDERED: MAG HYDROX/AL HYDROX/SIMETH 30 ML UDC PO PRN (18:30)
[2017-03-29] MEDS ORDERED: Z GUARD REMEDY 2 OZ OINT TP PRN (18:30)
[2017-03-29] MEDS ORDERED: NITROGLYCERIN 4.9 GM SPRAY SL ONE (18:30)
[2017-03-29] MEDS ORDERED: MORPHINE SULFATE INJ 2 MG/ML DISP.SYRIN IV PRN (18:30)
[2017-03-29] MEDS ORDERED: ZOLPIDEM TARTRATE 5 MG TABLET PO PRN (18:30)
[2017-03-29] MEDS ORDERED: ACETAMINOPHEN 325 MG TABLET PO PRN (18:30)
[2017-03-29] MEDS ORDERED: MAGNESIUM HYDROXIDE 30 ML UDC PO PRN (18:30)
[2017-03-29] MEDS ORDERED: CALC0.253 PO (18:32)
[2017-03-29] MEDS ORDERED: SPIR25TA PO (18:32)
[2017-03-29] MEDS ORDERED: AMLO10TA2 PO (18:32)
[2017-03-29] MEDS ORDERED: OLME1TAB22 PO (18:32)
[2017-03-29] MEDS ORDERED: HYDR-4075 PO (18:32)
--- NOTE | 2017-03-29 18:33 | NUR ---
CARDIOLOGY ON-CALL PAGED
[2017-03-29 18:49] LABS: ABG BASE EXCESS -11.6 mmol/L; ABG OXYGEN SATURATION 98.2 % (92.0-98.5); ABG PCO2 35.2 mmHg (35.0-45.0); ABG PH 7.242 (7.350-7.450); ABG PO2 159.4 mmHg (75.0-100.0); COHb 0.6 % (0.5-1.5); MetHb 0.9 % (0.0-1.5); O2Hb 96.7 % (94.0-97.0); PEEP,BG 5 cm H2O; SITE, ABG Left Radial
[2017-03-29] MEDS ORDERED: LORAZEPAM INJ 2 MG/ML VIAL IV ONE (19:00)
[2017-03-29] MEDS ORDERED: *INSULIN REGULAR(HUMULIN R)HUM 100 UNIT/ML VIAL SQ PRN (19:00)
[2017-03-29] MEDS ORDERED: DEXTROSE 50%-WATER 50 ML DISP.SYRIN IV PRN (19:00)
[2017-03-29] MEDS ORDERED: DILTIAZEM HCL IV 125 MG in IV D5W 100 ML IV PRN ×2 (19:00→21:00)
--- NOTE | 2017-03-29 19:33 | NUR ---
ATIVAN NOT ADMINISTERED AT THIS TIME. PATIENT IS CALM AT THE MOMENT, NOT RESTLESS.
--- NOTE | 2017-03-29 19:35 | NUR ---
REPORT GIVEN TO CARLI HIRSCH FOR MELSISA.
[2017-03-29] MEDS: IV NS 0.9% 1,000 ML IV PRN (20:21)
--- NOTE | 2017-03-29 21:04 | NUR ---
rn:icu: pt received from er for respiratory failure. pt on bipap and cardizem gtt. pt afib >100 and sbp greater than 150's. per dr ana will to continue gtt to keep hr less than 100. clarified v/q scan order that was not completed as pt was unstable. per admitting md complete test as it was ordered stat. radiology notified. pt taken off bipap and placed on nonrebreather 15l and tolerating well. pt with low grade fever but per admitting md no antibx indicated at this time. consent verified with ed charge nurse for v/q scan. son who is dpoa agrees for pt to have procedure. ed charge nurse educated regarding procedure. fall precautions and aspiration precautions in place. per dr ana will to change admitting status to icu.
--- NOTE | 2017-03-29 21:27 | NUR ---
rn:icu: dr mckinley now taking over patients care. ok to continue cardizem gtt as previously ordered.
[2017-03-29] MEDS ORDERED: TAMSULOSIN 0.4 MG CAP.SR.24H ONE (21:45)
[2017-03-29] MEDS: TAMSULOSIN 0.4 MG CAP.SR.24H PO SCH (21:46)
[2017-03-29] MEDS: BLOOD SUGAR DIAGNOSTIC 1 EACH STRIP VI SCH (21:57)
--- NOTE | 2017-03-29 23:09 | NUR ---
NM:PTS CONDITION GETS WORSE IN Y\THE MIDDLE OF VENTILATION PARTS.NURSE DELMA CANCEL THE TEST. TECH RB.
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
[2017-03-30] VITALS (90 sets, daily range): BP systolic 65–171; BP diastolic 35–97
--- NOTE | 2017-03-30 01:00 | NUR ---
rn:icu: spoke with radiology regarding ct head ordered and discussed the urgency of ruling out head trauma. md stated that the test may be performed in am but try to perform it as soon as possible. radiology unable to perform ct head at this time as md ordered it routine. will follow up with crop and soil technician in a few hours as they are busy with ER patients. pt neuro status intact. changes made to bipap settings per md orders. pt remains on Cardizem gtt at 5mg/min, hr 85 afib and sbp 140's. will continue to monitor closely.
[2017-03-30 05:12] LABS: BASOPHILS % (AUTO) 0.4 % (0.0-2.0); HEMATOCRIT 23 % (39-51); HEMOGLOBIN 7.2 g/dL (13.5-17.5); LYMPHOCYTES # (AUTO) 0.3 /CMM (0.8-4.8); LYMPHOCYTES % (AUTO) 3.5 % (20.0-44.0); MEAN CORPUSCULAR HEMOGLOBIN 24 PG (26.0-33.0); MEAN CORPUSCULAR HGB CONC 32 g/dl (31.0-36.0); MEAN CORPUSCULAR VOLUME 75 fL (80-96); MONOCYTES # (AUTO) 0.7 /CMM (0.1-1.30); MONOCYTES % (AUTO) 6.9 % (2.0-12.0); NEUTROPHILS # (AUTO) 8.4 /CMM (1.8-8.9); NEUTROPHILS % (AUTO) 89.2 % (43.0-81.0); PLATELET COUNT (AUTO) 213 /CMM (150-450); RDW COEFFICIENT OF VARIATION 18.9 (11.5-15.0); RED BLOOD CELL COUNT(AUTO) 3.01 MIL/uL (4.5-6.0); WHITE BLOOD COUNT (AUTO) 9.5 K/uL (4.3-11.0)
[2017-03-30 05:27] LABS: ALANINE AMINOTRANSFERASE 27 U/L (12-78); ALBUMIN 3.2 g/dL (3.4-5.0); ALKALINE PHOSPHATASE 89 U/L (46-116); AMYLASE 102 U/L (25-115); ASPARTATE AMINOTRANSFERASE 16 U/L (15-37); BILIRUBIN,TOTAL 0.3 mg/dL (0.2-1.0); CALCIUM, SERUM 7.5 mg/dL (8.5-10.1); CARBON DIOXIDE 19 mmol/L (21-32); CHLORIDE 115 mmol/L (98-107); CREATININE 4.2 mg/dL (0.6-1.3); GLUCOSE 154 mg/dL (74-106); LIPASE 490 U/L (73-393); MAGNESIUM 1.7 mg/dL (1.8-2.4); PHOSPHORUS 3.6 mg/dL (2.5-4.9); POTASSIUM 5.5 mmol/L (3.5-5.1); SODIUM SERUM 145 mmol/L (136-145); TOTAL PROTEIN, SERUM 6.4 g/dL (6.4-8.2); UREA NITROGEN, BLOOD 62 mg/dL (7-18)
[2017-03-30 05:31] LABS: INR 1.15 (0.87-1.13)
[2017-03-30 05:35] LABS: CHOLESTEROL 61 mg/dL (<200); CREATINE KINASE MB 5.1 ng/mL (0-3.6); HDL CHOLESTEROL 34 mg/dL (40-60); LDL 24 mg/dL (0-99); PREALBUMIN 25.3 MG/DL (18.0-35.7); THYROID STIMULATING HORMONE 1.325 uIU/mL (0.358-3.74); TRIGLYCERIDES 67 mg/dL (30-150)
--- NOTE | 2017-03-30 05:46 | NUR ---
rn:icu: pt continues to be restless and difficult to redirect which makes taking pt to ct head difficult. pt will not comply and stay still long enough for ct to be performed. additionally, breathing trial off bipap and lying flat to see if pt could tolerate procedure was unsuccessful and cause pt sob. will endorse to oncoming shift need to perform ct head and spine xray. will continue to monitor closely.
[2017-03-30 06:04] LABS: IRON, SERUM 20 ug/dl (50-175); TOTAL IRON BINDING CAPACITY 319 ug/dl (250-450)
--- NOTE | 2017-03-30 06:35 | NUR ---
rn:icu: pt becoming extremely anxious stating that he wants to pee but is unable to urinate. offered to insert gay cath and pt refused. pt started ripping off bipap and stating he needs to defecate. unable to find bsc in time and pt had large liquid bowel movement all over the bed and floor. bsc brought to his room where pt continued to have extremely large semisolid bm. pt stated he feels much more relieved following bm. complete linen change and bed bath perform along with pericare. house keeping at the bedside to clean room. pt stool appears to be dark brown, pt has hx of gi bleed. will endorse to oncoming shift to notify md regarding possible gi bleed. pt now resting comfortably in bed, with fall precautions in place. will continue to monitor closely.
--- NOTE | 2017-03-30 07:20 | NUR ---
TRIAGE ASSISTANT RECEIVED PATIENT FORM THE PREVIOUS SHIFT. PATIENT IS IN BED. NOTED TO BE ANXIOUS. PATIENT IS NON COMPLIANT WITH TREATMENT PLAN. PATIENT NOTED TO GET OUT OF BED WITHOUT CALLING ASSISTANCE. PATIENT IS ALERT AND ORIENTED X 4. ABLE TO VERBALIZE NEEDS. RN EDUCATED PATIENT REGARDING FALL RISK AND FALL PREVENTION. PATIENT VERBALIZED UNDERSTANDING YET BEING NON COMPLIANT. WILL CONTINUE TO MONITOR AND PROVIDE CARE.
[2017-03-30] MEDS: BLOOD SUGAR DIAGNOSTIC 1 EACH STRIP VI SCH ×4 (07:30→22:40)
--- NOTE | 2017-03-30 08:02 | NUR ---
BUSINESS OBJECTS REPORT DEVELOPER PATIENT REFUSED BLOOD GLUCOSE LEVELS AT THIS TIME. RISK AND BENEFITS EXPLAINED.
[2017-03-30] MEDS: PANTOPRAZOLE 40 MG TABLET.DR PO SCH (08:07)
[2017-03-30] MEDS: CALCITRIOL 0.25 MCG CAPSULE PO SCH (08:07)
[2017-03-30] MEDS: hydrALAZINE HCL 10 MG TABLET PO SCH ×3 (08:07→16:24)
[2017-03-30] MEDS: AMLODIPINE BESYLATE 10 MG TABLET PO SCH (08:07)
[2017-03-30] MEDS: IV NS 0.9% 1,000 ML IV PRN (08:30)
[2017-03-30 09:25] LABS: ABG BASE EXCESS -11.3 mmol/L; ABG OXYGEN SATURATION 97.9 % (92.0-98.5); ABG PCO2 25.6 mmHg (35.0-45.0); ABG PH 7.337 (7.350-7.450); ABG PO2 115.1 mmHg (75.0-100.0); AaDO2 284.5 mmHg; COHb 0.6 % (0.5-1.5); MetHb 0.4 % (0.0-1.5); O2Hb 96.9 % (94.0-97.0); SITE, ABG Right Radial; VENT MODE, BG 10L SIMPLE MASK
[2017-03-30] MEDS ORDERED: BUMETANIDE INJ 0.25 MG/ML VIAL IV SCH (10:30)
[2017-03-30] MEDS ORDERED: FUROSEMIDE 40 MG/4 ML VIAL IV SCH (11:00)
[2017-03-30] MEDS: DILTIAZEM HCL 30 MG TABLET PO SCH ×3 (11:17→23:00)
[2017-03-30] MEDS ORDERED: EPOETIN ALFA (20,000 UNIT) 20,000 UNIT/ML VIAL SQ ONE (11:30)
[2017-03-30] MEDS ORDERED: BUMETANIDE INJ 3 MG in IV NS 0.9% 48 ML IV ONE (11:30)
[2017-03-30] MEDS: TRINTELLIX 20 MG PO SCH ×2 (12:00→13:54)
[2017-03-30] MEDS: MEMANTINE PO SCH ×2 (12:00→13:54)
[2017-03-30] MEDS: DONEPEZIL PO SCH ×2 (12:00→13:54)
--- NOTE | 2017-03-30 12:03 | NUR ---
NEUROPSYCHOLOGIST RN SPOKE TO FAMILY AND ASKED THEM TO BRING PATIENT'S HOME MEDS TO ADMINISTER PER MD ORDER. FAMILY SAID THEM WILL ONLY BE ABLE TO BRING THEM TOMORROW. NON ADMIN DONE FOR HOME MEDS. PHARMACY AWARE.
--- NOTE | 2017-03-30 12:06 | NUR ---
DEVELOPMENT ENGINEER INSULIN HELD DUE TO NPO DIAGNOSIS.
[2017-03-30] MEDS: FUROSEMIDE 40 MG/4 ML VIAL IV SCH ×3 (12:11→14:00)
[2017-03-30] MEDS ORDERED: LEVOFLOXACIN (750 MG) 750 MG TABLET PO ONE ×2 (13:00→16:00)
[2017-03-30] MEDS: PANTOPRAZOLE 40 MG VIAL IV SCH (13:30)
--- NOTE | 2017-03-30 14:26 | NUR ---
SENIOR LITIGATION PARALEGAL PER DENTIST ATTENDANT PATIENT TO BE KEPT NPO TODAY.
[2017-03-30] MEDS ORDERED: LEVOFLOXACIN (750 MG) 750 MG TABLET PO SCH (15:30)
--- NOTE | 2017-03-30 15:34 | NUR ---
MANAGER OFFICE SERVICES PROTONIX IV DOSE HELD SINCE PO DOSE WAS GIVE THIS AM. NO MAGNESIUM REPLACEMENTS PER TRANSMISSION AND COORDINATION ENGINEER.
[2017-03-30] MEDS: SOD FERRIC GLUC 125 MG in IV NS 0.9% 100 ML IV SCH (16:25)
[2017-03-30] MEDS ORDERED: FUROSEMIDE 40 MG/4 ML VIAL IV ONE (17:00)
[2017-03-30] MEDS ORDERED: RIVAROXABAN 15 MG TABLET PO SCH (17:00)
--- NOTE | 2017-03-30 18:12 | NUR ---
SILO OPERATOR RN CALLED DR. MCCLAIN REGARDING PATIENT'S TEMP 100.1. RECEIVED MD RECOMMENDATION TO TAKE TYLENOL AND WAIT AN HOUR, RECHECK AND TEMP AND IF NORMAL ADMINISTER BLOOD.
--- NOTE | 2017-03-30 20:00 | NUR ---
FRONT END SOFTWARE DEVELOPER NOTES RECEIVED PT IN BED, AWAKE. A/O X1-2 WITH OCCASIONAL CONFUSION. TELE READS AFIB CONTROLLED 70-80 BPM. ON O2 VIA NC AT 4 LPM, CRIS WELL, SPO2 >96%. NPO AT THIS TIME. CONDE CATH INPLACE, DRAINING WELL TO CLEAR YELLOW URINE. IV SITES AT RFA 18G AND LAC 18G, RUNNING NS AT TKO. SKIN INTACT. ABLE TO AMBULATE WITH ASSIST TO BEDSIDE COMMODE. PT IS TO RECEIVED TWO UNITS OF PRBC FOLLOWED BY CT ABD/PELVIS W/O CONTRAST. AWAITING FOR FEVER TO DECREASE, TYLENOL GIVEN BY PREVIOUS RN. DR CAVAZOS PLANS TO PERFORM AN EGD ON FRIDAY AND WANTS CONSENT TO BE OBTAIN ON FRIDAY, PER AM RN. FAMILY AT BEDSIDE, ALL QUESTIONS ANSWERED AND NEEDS MET. PATIENT HAS INDEPENDENT BED MOBILITY. BED ALARM ON. CALL LIGHT WITHIN REACH.
[2017-03-30] MEDS ORDERED: METOPROLOL TARTRATE INJ 5 MG/5 ML AMPUL ONE (22:23)
[2017-03-30] MEDS: TAMSULOSIN 0.4 MG CAP.SR.24H PO SCH (22:36)
[2017-03-31] VITALS (75 sets, daily range): BP systolic 98–189; BP diastolic 39–109
--- NOTE | 2017-03-31 02:05 | NUR ---
LEHR CUTTER NOTES PT HAD A HEART PAUSE FOR 1.6 SECONDS. PT IS ASYMPTOMATIC. DENIES CHEST PAIN OR SOB.
--- NOTE | 2017-03-31 02:30 | NUR ---
CAMERA TUNING ENGINEER NOTES PT RECEIVED TWO UNITS OF PRBC. TAKEN TO RADIOLOGY IN WHEELCHAIR WITH CHEMICALS DISTILLER, CT ABD/PELVIS W/O CONTRAST PERFORMED AND WELL CXR. RETURNED TO ROOM AND INTO BED. TRANSPORTATION INCLUDED VITALS MONITORING AND OXYGEN USE.
[2017-03-31 05:19] LABS: BASOPHILS # (AUTO) 0.1 /CMM (0.0-0.2); BASOPHILS % (AUTO) 0.9 % (0.0-2.0); EOSINOPHILS % (AUTO) 0.1 % (0.0-6.0); HEMATOCRIT 28 % (39-51); HEMOGLOBIN 8.9 g/dL (13.5-17.5); LYMPHOCYTES # (AUTO) 0.4 /CMM (0.8-4.8); LYMPHOCYTES % (AUTO) 5.9 % (20.0-44.0); MEAN CORPUSCULAR HEMOGLOBIN 25 PG (26.0-33.0); MEAN CORPUSCULAR HGB CONC 32 g/dl (31.0-36.0); MEAN CORPUSCULAR VOLUME 77 fL (80-96); MONOCYTES # (AUTO) 0.7 /CMM (0.1-1.30); NEUTROPHILS # (AUTO) 5.5 /CMM (1.8-8.9); NEUTROPHILS % (AUTO) 82.1 % (43.0-81.0); PLATELET COUNT (AUTO) 204 /CMM (150-450); RDW COEFFICIENT OF VARIATION 19.2 (11.5-15.0); RED BLOOD CELL COUNT(AUTO) 3.59 MIL/uL (4.5-6.0); WHITE BLOOD COUNT (AUTO) 6.7 K/uL (4.3-11.0)
[2017-03-31] MEDS: DILTIAZEM HCL 30 MG TABLET PO SCH ×4 (05:30→23:03)
[2017-03-31 05:36] LABS: CALCIUM, SERUM 7.9 mg/dL (8.5-10.1); CARBON DIOXIDE 17 mmol/L (21-32); CHLORIDE 111 mmol/L (98-107); CREATININE 4.6 mg/dL (0.6-1.3); GLUCOSE 97 mg/dL (74-106); MAGNESIUM 1.5 mg/dL (1.8-2.4); PHOSPHORUS 4.7 mg/dL (2.5-4.9); SODIUM SERUM 141 mmol/L (136-145); UREA NITROGEN, BLOOD 65 mg/dL (7-18)
--- NOTE | 2017-03-31 06:30 | NUR ---
NANNY/HOUSEHOLD MANAGER NOTES PT HAD MULTIPLE HEART PAUSES FOR APPROXIMATELY 30 SECONDS WITH EACH ONE LASTING 2.2 SECONDS. MULTIPLE TRIGEMINIES AND BIGEMINIES. HR DROPPED DOWN TO 35 BPM DURING EPISODE. PT IS ASYMPTOMATIC. DENIES CHEST PAIN OR SOB.
--- NOTE | 2017-03-31 07:25 | NUR ---
RN NOTES RECEIVED PT IN STABLE CONDITION. A&0X1-2 WITH PERIODS WITH CONFUSION. ON 2L NC SATING WELL NO SOB OR DISTRESS NOTED. AFIB ON THE MONITOR HR 74. NPO CURRENTLY. CONDE DRAINING TO GRAVITY YELLOW IN COLOR. LAC 18 G IV, RFA 18G IV SITE IN TACT NO IVF. BED LOCKED AND IN LOWEST POSITION, CALL LIGHT WITHIN REACH, SIDE RAILS UPX3, WILL CONT TO MONITOR.
[2017-03-31] MEDS: DONEPEZIL PO SCH (08:15)
[2017-03-31] MEDS: PANTOPRAZOLE 40 MG TABLET.DR PO SCH (08:15)
[2017-03-31] MEDS: MEMANTINE PO SCH (08:15)
[2017-03-31] MEDS: CALCITRIOL 0.25 MCG CAPSULE PO SCH (08:15)
[2017-03-31] MEDS: TRINTELLIX 20 MG PO SCH (08:15)
[2017-03-31] MEDS: AMLODIPINE BESYLATE 10 MG TABLET PO SCH (08:16)
[2017-03-31] MEDS: hydrALAZINE HCL 10 MG TABLET PO SCH ×3 (08:16→16:15)
[2017-03-31] MEDS: BLOOD SUGAR DIAGNOSTIC 1 EACH STRIP VI SCH ×4 (08:16→22:58)
[2017-03-31 10:22] LABS: ABG BASE EXCESS -11.9 mmol/L; ABG OXYGEN SATURATION 96.7 % (92.0-98.5); ABG PCO2 27.1 mmHg (35.0-45.0); ABG PH 7.304 (7.350-7.450); ABG PO2 99.3 mmHg (75.0-100.0); AaDO2 154.7 mmHg; COHb 0.3 % (0.5-1.5); MetHb 0.6 % (0.0-1.5); O2Hb 95.8 % (94.0-97.0); SITE, ABG Left Radial; VENT MODE, BG Nasal Cannula
[2017-03-31] MEDS: LEVOFLOXACIN (500MG) 500 MG TABLET PO SCH (12:10)
[2017-03-31] MEDS: INSULIN REGULAR, HUMAN 100 UNIT/ML 3 ML VIAL SQ PRN (12:14)
[2017-03-31] MEDS: PANTOPRAZOLE 40 MG VIAL IV SCH (12:42)
[2017-03-31] MEDS: CITRIC ACID/SODIUM CITRATE (BICITRA)15 ML UDC PO SCH ×3 (13:52→22:56)
[2017-03-31] MEDS: SOD FERRIC GLUC 125 MG in IV NS 0.9% 100 ML IV SCH (14:30)
[2017-03-31] MEDS ORDERED: Magnesium 1GM/D5W 100ML PREMIX PIGGYBACK IV ONE ×2 (16:00)
[2017-03-31] MEDS: Magnesium 1GM/D5W 100ML PREMIX 100 ML IV SCH ×2 (16:15→17:36)
--- NOTE | 2017-03-31 18:41 | NUR ---
RN NOTES PT REMAINED IN STABLE CONDITION, ALL NEEDS MET, NO COMPLAINTS OF PAIN. BED LOCKED AND IN LOWEST POSITION, CALL LIGHT WITHIN REACH, SIDE RAILS UPX3, WILL ENDORSE TO ONCOMING SHIFT.
--- NOTE | 2017-03-31 20:00 | NUR ---
COMPUTER AIDED DESIGN TECHNICIAN NOTES RECEIVED PT IN BED, AWAKE. A/O X2 WITH OCCASIONAL CONFUSION. TELE READS AFIB CONTROLLED 70-80 BPM. ON O2 VIA NC AT 4 LPM, CRIS WELL, SPO2 >98%. NPO AFTER MIDNIGHT. CONDE CATH IN PLACE, DRAINING WELL TO CLEAR YELLOW URINE. IV SITES AT RFA 18G AND LAC 18G, RUNNING NS AT TKO. SKIN INTACT. ABLE TO AMBULATE WITH ASSIST TO BEDSIDE COMMODE. DR CAVAZOS PLANS TO PERFORM AN EGD ON FRIDAY, CONSENT OBTAINED BY AM RN. DR SALGADO PLACED A [facility] [place] [facility] [place] TO HAVE ANESTHESIA DURING EGD. PATIENT HAS INDEPENDENT BED MOBILITY. BED ALARM ON. CALL LIGHT WITHIN REACH.
[2017-03-31 21:26] LABS: BASOPHILS % (AUTO) 0.3 % (0.0-2.0); EOSINOPHILS % (AUTO) 0.2 % (0.0-6.0); HEMATOCRIT 27 % (39-51); HEMOGLOBIN 8.5 g/dL (13.5-17.5); LYMPHOCYTES # (AUTO) 0.5 /CMM (0.8-4.8); LYMPHOCYTES % (AUTO) 8.3 % (20.0-44.0); MEAN CORPUSCULAR HEMOGLOBIN 24 PG (26.0-33.0); MEAN CORPUSCULAR HGB CONC 32 g/dl (31.0-36.0); MEAN CORPUSCULAR VOLUME 76 fL (80-96); MONOCYTES # (AUTO) 0.7 /CMM (0.1-1.30); MONOCYTES % (AUTO) 11.3 % (2.0-12.0); NEUTROPHILS # (AUTO) 5.1 /CMM (1.8-8.9); NEUTROPHILS % (AUTO) 79.9 % (43.0-81.0); PLATELET COUNT (AUTO) 227 /CMM (150-450); RDW COEFFICIENT OF VARIATION 18.1 (11.5-15.0); WHITE BLOOD COUNT (AUTO) 6.3 K/uL (4.3-11.0)
--- NOTE | 2017-03-31 21:30 | NUR ---
FIBRE OPTIC CABLE SPLICER NOTES PATIENT WAS FOUND IN ROOM BLEEDING ON BED AND FLOOR FROM PENIS. PT HAS PULLED OUT CONDE CATH, BOTH IVs, BP CUFF, ELECTRODES AND NASAL CANULA. PT IS CONFUSED AT THIS TIME. WHEN ASKED WHY HE PULLED EVERYTHING OFF, HE STATED "I WANTED TO PEE." STAT CBC WAS ORDERED. CURRENT H/H: 8.08/31. PRESSURE WAS APPLIED TO PENIS UNTIL BLEEDING CEASED. PT'S VITALS SAME BEFORE AND WNL. PT STATES HE HAS MILD PAIN AT PENIS BUT OTHERWISE IS FINE.
--- NOTE | 2017-03-31 22:33 | NUR ---
REPAIR WEAVER NOTES SPOKE TO DR MCLCAIN AND MADE AWARE OF PT PULLING OUT CONDE DURING CONFUSION AND CAUSING CONTINUOUS BLEEDING FROM PENIS. MADE AWARE OF STAT CBC RESULTS. ORDER RECEIVED FOR H/H LABS IN A FEW HOURS AND SITTER. PER DR MCCLAIN, MONITOR BLEEDING UNTIL IT STOPS ON ITS OWN. CALLED EDUCATION TECHNICIAN HEATHER FOR SITTER, NO SITTERS AVAILABLE AT THIS TIME.
[2017-03-31] MEDS: TAMSULOSIN 0.4 MG CAP.SR.24H PO SCH (22:56)
[2017-04-01] VITALS (35 sets, daily range): BP systolic 99–158; BP diastolic 51–91
--- NOTE | 2017-04-01 01:00 | NUR ---
CHIEF PROCUREMENT OFFICER NOTES PENILE BLEEDING HAS SLOWED TO A SCANT AMOUNT OF BLOOD, NOTICEABLE DURING DIAPER CHANGES. PT DENIES PAIN BUT COMPLAINS OF INABILITY TO URINATE. STATES HE FEELS LIKE HIS BLADDER IS FULL. BLADDER SCAN PERFORMED, 230 ML OF URINE RESULTED.
[2017-04-01 01:26] LABS: HEMOGLOBIN 7.5 g/dL (13.5-17.5)
--- NOTE | 2017-04-01 02:15 | NUR ---
[employer] PLANT WORKER NOTES PT'S DIAPER CHECK AND MODERATE AMOUNT OF URINE OUTPUT NOTED. PT STILL STATES HE IS UNABLE TO URINATE.
[2017-04-01] MEDS: DILTIAZEM HCL 30 MG TABLET PO SCH ×4 (05:33→23:16)
[2017-04-01 05:36] LABS: BASOPHILS % (AUTO) 0.2 % (0.0-2.0); EOSINOPHILS % (AUTO) 0.1 % (0.0-6.0); HEMATOCRIT 23 % (39-51); HEMOGLOBIN 7.6 g/dL (13.5-17.5); LYMPHOCYTES # (AUTO) 0.5 /CMM (0.8-4.8); MEAN CORPUSCULAR HEMOGLOBIN 25 PG (26.0-33.0); MEAN CORPUSCULAR HGB CONC 33 g/dl (31.0-36.0); MEAN CORPUSCULAR VOLUME 76 fL (80-96); MONOCYTES # (AUTO) 0.6 /CMM (0.1-1.30); MONOCYTES % (AUTO) 11.4 % (2.0-12.0); NEUTROPHILS # (AUTO) 4.1 /CMM (1.8-8.9); NEUTROPHILS % (AUTO) 78.3 % (43.0-81.0); PLATELET COUNT (AUTO) 204 /CMM (150-450); RDW COEFFICIENT OF VARIATION 19.1 (11.5-15.0); RED BLOOD CELL COUNT(AUTO) 3.04 MIL/uL (4.5-6.0); WHITE BLOOD COUNT (AUTO) 5.2 K/uL (4.3-11.0)
[2017-04-01 05:48] LABS: ALANINE AMINOTRANSFERASE 20 U/L (12-78); ALBUMIN 2.7 g/dL (3.4-5.0); ALKALINE PHOSPHATASE 53 U/L (46-116); ASPARTATE AMINOTRANSFERASE 15 U/L (15-37); BILIRUBIN,TOTAL 0.3 mg/dL (0.2-1.0); CARBON DIOXIDE 19 mmol/L (21-32); CHLORIDE 111 mmol/L (98-107); CREATININE 4.7 mg/dL (0.6-1.3); GLUCOSE 109 mg/dL (74-106); MAGNESIUM 2.2 mg/dL (1.8-2.4); POTASSIUM 4.7 mmol/L (3.5-5.1); SODIUM SERUM 143 mmol/L (136-145); TOTAL PROTEIN, SERUM 5.6 g/dL (6.4-8.2)
[2017-04-01 05:52] LABS: UREA NITROGEN, BLOOD 76 mg/dL (7-18)
[2017-04-01 06:29] LABS: BAND % (MANUAL) 1 % (0.0-5.0); LYMPHOCYTES % (MANUAL) 12 % (16-48); MONOCYTES % (MANUAL) 13 % (0-11.0); NEUTROPHILS % (MANUAL) 74 (42-76)
[2017-04-01] MEDS: PANTOPRAZOLE 40 MG TABLET.DR PO SCH (07:30)
[2017-04-01] MEDS: BLOOD SUGAR DIAGNOSTIC 1 EACH STRIP VI SCH ×4 (08:15→21:42)
[2017-04-01] MEDS: CITRIC ACID/SODIUM CITRATE (BICITRA)15 ML UDC PO SCH ×4 (08:15→21:40)
[2017-04-01] MEDS: hydrALAZINE HCL 10 MG TABLET PO SCH ×3 (08:15→16:46)
[2017-04-01] MEDS: DONEPEZIL PO SCH (08:16)
[2017-04-01] MEDS: TRINTELLIX 20 MG PO SCH (08:16)
[2017-04-01] MEDS: AMLODIPINE BESYLATE 10 MG TABLET PO SCH (08:16)
[2017-04-01] MEDS: MEMANTINE PO SCH (08:16)
[2017-04-01] MEDS: CALCITRIOL 0.25 MCG CAPSULE PO SCH (08:18)
[2017-04-01] MEDS ORDERED: IV NS 0.9% 500 ML IV ONE (09:30)
--- NOTE | 2017-04-01 09:45 | NUR ---
ICU/RN: Dr Grande at bedside, updated on overnight event. FC pulled out with drop in hemoglobin to 7.6. Scheduled for procedure today. Per MD do not insert new lines, "Pt will just keep pulling it out, the peripheral IV is fine." Frequent checks and orientation provided to pt. Unable to obtain sitter per nursing tube room supervisor; despite order for sitter obtained from Dr. Grande. Family called to sit at bedside, however unsure time of arrival. Alarm sounds audible. Will monitor closely.
--- NOTE | 2017-04-01 10:15 | NUR ---
ICU/RN: Informed Dr Grande of bladder residual 726cc, pt assisted to BSC 3x since 729 with scant urination. Bladder is distended, pt c/o discomfort to touch. Per MD, insert FC, if pt refuses straight cath pt q6h bladder residual >250cc.
--- NOTE | 2017-04-01 12:00 | NUR ---
ICU/RN: FC #14 inserted x1 attempt. Hematuria noted. No clots observed. Educated pt on need for gay, agrees not to pull line.
--- NOTE | 2017-04-01 12:15 | NUR ---
ICU/RN: Pt states relief from FC, bladder with decreased distention. Cooperative with POC.
[2017-04-01] MEDS: PANTOPRAZOLE 40 MG VIAL IV SCH (13:39)
--- NOTE | 2017-04-01 14:15 | NUR ---
ICU/RN: Per OR staff, EGD is canceled today. Anesthesiology fears compromise of respiratory status. Family and pt informed.
[2017-04-01] MEDS ORDERED: Magnesium 1GM/D5W 100ML PREMIX PIGGYBACK IV ONE ×2 (15:00→15:30)
[2017-04-01] MEDS: Magnesium 1GM/D5W 100ML PREMIX 100 ML IV SCH ×2 (15:44→16:44)
[2017-04-01] MEDS: SOD FERRIC GLUC 125 MG in IV NS 0.9% 100 ML IV SCH (15:44)
[2017-04-01] MEDS: INSULIN REGULAR, HUMAN 100 UNIT/ML 3 ML VIAL SQ PRN (17:35)
--- NOTE | 2017-04-01 20:00 | NUR ---
BALANCE TRUER NOTES RECEIVED PT IN BED, AWAKE. A/O X2 WITH OCCASIONAL CONFUSION. TELE READS AFIB CONTROLLED 67 BPM. ON O2 VIA NC AT 2-4 LPM, CRIS WELL, SPO2 >96%. NPO AFTER MIDNIGHT FOR POSSIBLE EGD IN AM. NEW CONDE CATH IN PLACE TODAY, DRAINING WELL TO CLEAR RED/YELLOW HEMATURIA DUE TO PT FORCEFULLY PULLING OUT PREVIOUS CONDE CATH. IV SITES AT RFA 20G AND LAC 20G, RUNNING NS AT TKO. SKIN INTACT. ABLE TO AMBULATE WITH ASSIST TO BEDSIDE COMMODE. EGD FOR TODAY WAS CANCELLED BY ANESTHESIA, WILL KEEP PT NPO AFTER MIDNIGHT IN CASE EGD IS PERFORM TOMORROW. PATIENT HAS INDEPENDENT BED MOBILITY. BED ALARM ON. CALL LIGHT WITHIN REACH.
[2017-04-01] MEDS: TAMSULOSIN 0.4 MG CAP.SR.24H PO SCH (21:40)
--- NOTE | 2017-04-01 22:15 | NUR ---
RIVERBOAT CAPTAIN NOTES DR KILLIAN ON THE FLOOR. UPDATED ON PT CONDITION. DR REQUESTING EEG RESULTS. INFORMATION SECURITY ARCHITECT JUANA CALLED AT [phone] IN REGARDS TO THE EEG RESULTS AND WHERE TO FIND IT. PER JUANA, HE HAS MADE MULTIPLE ATTEMPTS TO CALL DR KILLIAN BUT NO ANSWER AND VOICEMAIL IS FULL. JUANA STATES THE RESULTS ARE AT THE USUAL PLACE WHERE DR KILLIAN NORMALLY READS THEM. CALLED DR KILLIAN' OFFICE TO MAKE AWARE BUT NO ANSWER, LEFT VOICEMAIL.
[2017-04-02] VITALS (18 sets, daily range): BP systolic 106–145; BP diastolic 52–69
[2017-04-02 06:11] LABS: EOSINOPHILS # (AUTO) 0.1 /CMM (0.0-0.7); EOSINOPHILS % (AUTO) 2.1 % (0.0-6.0); HEMATOCRIT 26 % (39-51); HEMOGLOBIN 8.5 g/dL (13.5-17.5); LYMPHOCYTES # (AUTO) 0.6 /CMM (0.8-4.8); MEAN CORPUSCULAR HEMOGLOBIN 25 PG (26.0-33.0); MEAN CORPUSCULAR HGB CONC 33 g/dl (31.0-36.0); MEAN CORPUSCULAR VOLUME 76 fL (80-96); MONOCYTES # (AUTO) 0.5 /CMM (0.1-1.30); MONOCYTES % (AUTO) 9.2 % (2.0-12.0); NEUTROPHILS % (AUTO) 76.7 % (43.0-81.0); PLATELET COUNT (AUTO) 225 /CMM (150-450); RDW COEFFICIENT OF VARIATION 19.1 (11.5-15.0); RED BLOOD CELL COUNT(AUTO) 3.41 MIL/uL (4.5-6.0); WHITE BLOOD COUNT (AUTO) 5.2 K/uL (4.3-11.0)
[2017-04-02 06:32] LABS: ALANINE AMINOTRANSFERASE 20 U/L (12-78); ALBUMIN 2.7 g/dL (3.4-5.0); ALKALINE PHOSPHATASE 49 U/L (46-116); ASPARTATE AMINOTRANSFERASE 16 U/L (15-37); BILIRUBIN,TOTAL 0.3 mg/dL (0.2-1.0); CALCIUM, SERUM 7.6 mg/dL (8.5-10.1); CARBON DIOXIDE 21 mmol/L (21-32); CHLORIDE 113 mmol/L (98-107); CREATININE 4.8 mg/dL (0.6-1.3); GLUCOSE 95 mg/dL (74-106); MAGNESIUM 2.6 mg/dL (1.8-2.4); PHOSPHORUS 4.4 mg/dL (2.5-4.9); POTASSIUM 4.6 mmol/L (3.5-5.1); SODIUM SERUM 144 mmol/L (136-145); TOTAL PROTEIN, SERUM 5.9 g/dL (6.4-8.2); UREA NITROGEN, BLOOD 76 mg/dL (7-18)
[2017-04-02] MEDS: DILTIAZEM HCL 30 MG TABLET PO SCH ×3 (06:53→17:04)
--- NOTE | 2017-04-02 08:00 | NUR ---
ICU/RN AM SHIFT INITIAL NOTES RECEIVED PT ASLEEP IN BED, AROUSEABLE, PT ALERT 2-3, UNDERSTANDS LITTLE SETSWANA, NO ACUTE CHANGE OF CONDITION, ON 3L O2 VIA N/C SATURATING @ 97%, LUNG SOUNDS DIMINISHED. ON TELE MONITORING WITH CONTROLLED A-FIB, HR 68. IV SITES FLUSHED, PATENT WITH NO S/S OF INFECTION, SL. CONDE CATHETER INTACT NOTED WITH YELLOW URINE OUTPUT. PT ON NPO STATUS FOR POSSIBLE EGD PROCEDURE TODAY. PER CHARGE NURSE MAY TAKE MEDS WITH MINIMAL WATER INTAKE. SCHEDULED AM MEDS TO BE GIVEN. PT IS COMFORTABLE. CL WITHIN REACHED AND SAFETY MAINTAINED. ON GOING MONITORING.
[2017-04-02] MEDS: BLOOD SUGAR DIAGNOSTIC 1 EACH STRIP VI SCH ×4 (08:06→21:42)
[2017-04-02] MEDS: TRINTELLIX 20 MG PO SCH (08:33)
[2017-04-02] MEDS: DONEPEZIL PO SCH (08:33)
[2017-04-02] MEDS: PANTOPRAZOLE 40 MG TABLET.DR PO SCH (08:33)
[2017-04-02] MEDS: MEMANTINE PO SCH (08:33)
[2017-04-02] MEDS: hydrALAZINE HCL 10 MG TABLET PO SCH ×3 (08:34→17:03)
[2017-04-02] MEDS: AMLODIPINE BESYLATE 10 MG TABLET PO SCH (08:34)
[2017-04-02] MEDS: CALCITRIOL 0.25 MCG CAPSULE PO SCH (08:34)
[2017-04-02] MEDS: CITRIC ACID/SODIUM CITRATE (BICITRA)15 ML UDC PO SCH ×4 (08:34→21:42)
[2017-04-02 09:31] LABS: ABG BASE EXCESS -9.2 mmol/L; ABG OXYGEN SATURATION 96.1 % (92.0-98.5); ABG PCO2 34.4 mmHg (35.0-45.0); ABG PH 7.295 (7.350-7.450); ABG PO2 96.4 mmHg (75.0-100.0); AaDO2 91.5 mmHg; MetHb 0.5 % (0.0-1.5); O2Hb 95.6 % (94.0-97.0); SITE, ABG Right Radial; VENT MODE, BG 3L N/C
--- NOTE | 2017-04-02 11:35 | NUR ---
ICU/RN EVALUATION PHYSICAL THERAPY PT BEING SEEN BY PHYSICAL THERAPIST FOR EVALUATION. MONITORING CONTINUED.
--- NOTE | 2017-04-02 11:42 | NUR ---
ICU/RN FOLLOW-UP PLAN OF CARE SPOKE TO DR. MCCLAIN VIA PHONE CALL ASK REGARDING PLAN OF CARE. PER MD WANT TO PERFORM EDG TOMORROW, START DIET FOR TODAY BUT NPO AFTER MIDNIGHT. ALSO ORDERED TO CALL OR FOR ANESTHESIOLOGIST TO EVALUATE PT FOR PROCEDURE TOMORROW. ORDER NOTED AND CARRIED.
--- NOTE | 2017-04-02 12:44 | NUR ---
ICU/SECONDS GRADER TO MICHELLE - ROOM 102 PT LEFT ICU VIA WHEELCHAIR. REPORT GIVEN TO NURSE MARTINEZ, ENDORSED TO CONTINUE CARE.
--- NOTE | 2017-04-02 13:00 | NUR ---
CAR PORTER NOTES RECEIVED PT FROM ICU ENDORSED JOLEEN BANKS RN
[2017-04-02] MEDS: LEVOFLOXACIN (500MG) 500 MG TABLET PO SCH (13:32)
[2017-04-02] MEDS: PANTOPRAZOLE 40 MG VIAL IV SCH (13:33)
[2017-04-02] MEDS: SOD FERRIC GLUC 125 MG in IV NS 0.9% 100 ML IV SCH (14:44)
[2017-04-02] MEDS: INSULIN REGULAR, HUMAN 100 UNIT/ML 3 ML VIAL SQ PRN (17:19)
--- NOTE | 2017-04-02 18:21 | NUR ---
MANUFACTURING SR ENGINEER NOTES NO ACUTE CHANGE OF CONDITION NOTED DURING THE SHIFT. ON NC 2LPM SATURATING WELL. NO SIGN OF RESPIRATORY DISTRESS. IV ACCESS RFA #20 AND LAC #20 SL NO REDNESS OR INFECTION. DUE MEDS GIVEN. HEAD OF BED ELEVATED. SIDE RAILS UP. PROVIDED COMFORT. CALL LIGHT IS PLACED WITHIN REACH. WILL ENDORSED TO THE PM NURSE.
[2017-04-02] MEDS: TAMSULOSIN 0.4 MG CAP.SR.24H PO SCH (21:42)
[2017-04-03] VITALS: BP 124/56
[2017-04-03] MEDS: DILTIAZEM HCL 30 MG TABLET PO SCH ×3 (01:00→12:00)
[2017-04-03 04:00] VITALS: BP 126/38
[2017-04-03] MEDS: PANTOPRAZOLE 40 MG TABLET.DR PO SCH (06:45)
[2017-04-03] MEDS: BLOOD SUGAR DIAGNOSTIC 1 EACH STRIP VI SCH ×2 (06:48→12:00)
--- NOTE | 2017-04-03 07:01 | NUR ---
RN NOTE PT REMAINS IN NO ACUTE DISTRESS IN BED. PT DID NOT HAVE ANY SIGNIFICANT CHANGE IN CONDITION DURING SHIFT. ALL NEEDS MET, ALL ORDERS CARRIED OUT. AWAITING EGD. WILL ENDORSE CARE TO AM RN FOR CONTINUITY OF CARE.
[2017-04-03 08:00] VITALS: BP_SYST 137; BP_DIAS 61; BP_DIAS 71
--- NOTE | 2017-04-03 10:25 | NUR ---
RN NOTE PER DR MCCLAIN TO CANCEL EGD THIS AM, AND D/C HOME. WILL CARRY OUT ORDERS.
[2017-04-03] MEDS ORDERED: CITR15SO PO (10:26)
[2017-04-03] MEDS ORDERED: ALLA266C2 TP (10:26)
[2017-04-03] MEDS ORDERED: LEVO500T2 PO (10:26)
[2017-04-03] MEDS ORDERED: MAGN400O6 PO (10:26)
[2017-04-03] MEDS ORDERED: ACET325T53 PO (10:26)
[2017-04-03] MEDS ORDERED: DILT30TA14 PO (10:26)
[2017-04-03] MEDS ORDERED: PANT40TA2 PO (10:26)
[2017-04-03] MEDS ORDERED: MAG30ORA PO (10:26)
[2017-04-03] MEDS: CALCITRIOL 0.25 MCG CAPSULE PO SCH (10:41)
[2017-04-03] MEDS: AMLODIPINE BESYLATE 10 MG TABLET PO SCH (10:41)
[2017-04-03 10:42] VITALS: BP 137/71
[2017-04-03] MEDS: hydrALAZINE HCL 10 MG TABLET PO SCH (10:42)
[2017-04-03] MEDS: MEMANTINE PO SCH (10:43)
[2017-04-03] MEDS: TRINTELLIX 20 MG PO SCH (10:43)
[2017-04-03] MEDS: DONEPEZIL PO SCH (10:43)
[2017-04-03] MEDS: CITRIC ACID/SODIUM CITRATE (BICITRA)15 ML UDC PO SCH (10:43)
--- NOTE | 2017-04-03 12:12 | NUR ---
RN NOTE PT DISCHARGED HOME WITH FAMILY (SON AND ), PT STABLE, AMBULATORY. DISCHARGE INSTRUCTIONS GIVEN TO PT AND PT'S SON, EXIT CARE PROVIDED, REFUSED VACCINES (PNA AND FLU). SKIN IS INTACT, IV REMOVED, ID BAND REMOVED, HOME MEDS GIVEN TO PT, BELONGINGS GIVEN TO PT, AND PT SIGNED BELONGINGS LIST. PT LEFT VIA OWN TRANSPORTATION. CONDE CATHETER STAYED IN PLACE PER DR MCCLAIN, AND LEG BAG ATTACHED TO CONDE, CONDE TO STAY AT LEAST A WEEK. CARE INSTRUCTIONS PROVIDED TO PT AND PT'S SON. PT AND PT'S SON VERBALIZED UNDERSTANDING.
== END 2017-04-03 12:00 | disposition home or self-care (01) | DRG 291 ==
LOC: ER 16:28 → ICU 19:34 → TELE1 04-02 12:45 → TELE-TD 04-02 12:59
PROVIDERS: ADMIT Internal Medicine; ATTEND Internal Medicine
PROC: 5A09357 Assistance with Respiratory Ventilation, Less than 24 Consecutive Hours, Continuous Positive Airway Pressure (ICD-10-PCS; principal; 2017-03-29)
PROC: 30233N1 Transfusion of Nonautologous Red Blood Cells into Peripheral Vein, Percutaneous Approach (ICD-10-PCS; 2017-03-30)
DX: I13.0 Hypertensive heart and chronic kidney disease with heart failure and stage 1 through stage 4 chronic kidney disease, or unspecified chronic kidney disease (principal); J18.9 Pneumonia, unspecified organism; J96.21 Acute and chronic respiratory failure with hypoxia; G92 Toxic encephalopathy; N18.4 Chronic kidney disease, stage 4 (severe); N17.9 Acute kidney failure, unspecified; E87.2 Acidosis; J90 Pleural effusion, not elsewhere classified; I48.0 Paroxysmal atrial fibrillation; E11.22 Type 2 diabetes mellitus with diabetic chronic kidney disease; I50.43 Acute on chronic combined systolic (congestive) and diastolic (congestive) heart failure; K86.1 Other chronic pancreatitis; C64.2 Malignant neoplasm of left kidney, except renal pelvis; Q21.1 Atrial septal defect; K81.9 Cholecystitis, unspecified; E83.42 Hypomagnesemia; D63.1 Anemia in chronic kidney disease; E03.9 Hypothyroidism, unspecified; D50.9 Iron deficiency anemia, unspecified; E78.5 Hyperlipidemia, unspecified; F02.80 Dementia in other diseases classified elsewhere, unspecified severity, without behavioral disturbance, psychotic disturbance, mood disturbance, and anxiety; G30.9 Alzheimer's disease, unspecified; F41.9 Anxiety disorder, unspecified; I25.10 Atherosclerotic heart disease of native coronary artery without angina pectoris; M81.0 Age-related osteoporosis without current pathological fracture; Z86.73 Personal history of transient ischemic attack (TIA), and cerebral infarction without residual deficits; N40.0 Benign prostatic hyperplasia without lower urinary tract symptoms; Z79.01 Long term (current) use of anticoagulants; F17.200 Nicotine dependence, unspecified, uncomplicated; J44.9 Chronic obstructive pulmonary disease, unspecified; K29.70 Gastritis, unspecified, without bleeding; K64.9 Unspecified hemorrhoids; R31.9 Hematuria, unspecified; N28.1 Cyst of kidney, acquired; E27.9 Disorder of adrenal gland, unspecified; Z91.19 Patient's noncompliance with other medical treatment and regimen; I34.0 Nonrheumatic mitral (valve) insufficiency; K21.9 Gastro-esophageal reflux disease without esophagitis; K64.8 Other hemorrhoids; Z79.899 Other long term (current) drug therapy; V89.2XXA Person injured in unspecified motor-vehicle accident, traffic, initial encounter; Y93.9 Activity, unspecified; Y92.9 Unspecified place or not applicable
CPT/HCPCS: 36415; 36600; 70450-TC; 71010-TC; 72020-TC; 76700-TC; 78582; 80048-TC; 80053-TC; 80061-TC; 80076-TC; 81000-TC; 82150-TC; 82553-TC; 82746; 82803-TC; 82962-TC; 83540-TC; 83605-TC; 83690-TC; 83735-TC; 84100-TC; 84134-TC; 84443-TC; 84484-TC; 85025-TC; 85027-TC; 85652-TC; 85730-TC; 86850-TC; 86921-TC; 87040-TC; 87081-TC; 87400; 93880-TC; 93970-TC; 95819-TC; 97530-TC; A4216; A4606; A9567; C9113; J0885; J1815; J1940; J2916; J3475; J3490; J7030; J7040; J7050; J7060; P9016-BL; Z7610

== ENCOUNTER 2017-08-05 21:55 | Emergency (ER) | payer MEDICARE, MEDICAID ==
[~2017-08-05] VITALS: Ht 170.2 cm; Wt 81.6 kg
[~2017-08-05 21:55] MED LIST changes: +ACET325T53 PO; +ALLA266C2 TP; -AMLO10TA2 PO; +AMLO10TA6 PO; +CALC0.253 PO; +CITR15SO PO; +DILT30TA14 PO; +HYDR-4075 PO; +LEVO500T2 PO; +MAG30ORA PO; +MAGN400O6 PO; +OLME1TAB22 PO; +PANT40TA2 PO; -ROSU5TAB PO; -SODI650T PO; +SPIR25TA PO
[2017-08-05 22:00] VITALS: BP 184/98
[2017-08-05] MEDS ORDERED: TDAP [DIPH/PERTUSSIS/TET] 0.5 ML VIAL IM ONE ×2 (22:30→23:16)
--- NOTE | 2017-08-05 22:58 | NUR ---
NIC CLARKE AT BEDSIDE FOR LAC REPAIR ON LEFT INDEX FINGER.
== END 2017-08-05 23:27 | disposition home or self-care (01) ==
LOC: ER 21:57
DX: S61.211A Laceration without foreign body of left index finger without damage to nail, initial encounter (principal); I10 Essential (primary) hypertension; F17.200 Nicotine dependence, unspecified, uncomplicated; E11.9 Type 2 diabetes mellitus without complications; Z85.528 Personal history of other malignant neoplasm of kidney; Z90.89 Acquired absence of other organs; W26.8XXA Contact with other sharp object(s), not elsewhere classified, initial encounter; Y93.89 Activity, other specified; Y92.89 Other specified places as the place of occurrence of the external cause; Y99.8 Other external cause status
CPT/HCPCS: 12001; 90471; 90715; 99283; A4606; A6402; Z7610

== ENCOUNTER 2018-03-13 16:29 | Inpatient (IN) | payer MEDICARE, MEDICAID ==
[~2018-03-13] VITALS: Ht 167.6 cm; Wt 76.2 kg
[~2018-03-13 16:29] MED LIST changes: -ACET325T53 PO; -ALLA266C2 TP; -AMLO10TA6 PO; +AMLO5TAB7 PO; +Blood Sugar Diagnostic IN; -CALC0.253 PO; +CLON0.1T14 PO; -DILT30TA14 PO; +GABA100C PO; -HYDR-4075 PO; -LEVO500T2 PO; -LINA5TAB PO; -LORA1TAB PO; +Levofloxacin (250MG) PO; -MAG30ORA PO; -MAGN400O6 PO; -MEMA1CAP2 PO; +MISO100T PO; -OLME1TAB22 PO; -PANT40TA2 PO; -RIVA10TA PO; -SPIR25TA PO; -TAMS0.4C34 PO; +TRAM50TA2 PO; -VORT20TA PO
--- NOTE | 2018-03-13 16:29 | NUR ---
LOW ABDOMINAL PAIN THIS MORNING, LAST BM THIS MORNING, PATIENT A/OX3 BRUNEIAN SPEAKING, UNDERSTAND LITTLE SWISS. ACCOMPANIED BY SON.
--- NOTE | 2018-03-13 17:20 | NUR ---
PATIENT WENT TO CT ABD
[2018-03-13 17:22] LABS: BASOPHILS # (AUTO) 0.1 /CMM (0.0-0.2); BASOPHILS % (AUTO) 0.9 % (0.0-2.0); EOSINOPHILS % (AUTO) 0.7 % (0.0-6.0); HEMATOCRIT 27 % (39-51); HEMOGLOBIN 8.4 g/dL (13.5-17.5); LYMPHOCYTES # (AUTO) 0.6 /CMM (0.8-4.8); LYMPHOCYTES % (AUTO) 6.4 % (20.0-44.0); MEAN CORPUSCULAR HGB CONC 31 g/dl (31.0-36.0); MEAN CORPUSCULAR VOLUME 85 fL (80-96); MONOCYTES # (AUTO) 0.5 /CMM (0.1-1.30); NEUTROPHILS # (AUTO) 8.4 /CMM (1.8-8.9); PLATELET COUNT (AUTO) 290 /CMM (150-450); RED BLOOD CELL COUNT(AUTO) 3.18 MIL/uL (4.5-6.0); WHITE BLOOD COUNT (AUTO) 9.7 K/uL (4.3-11.0)
[2018-03-13] MEDS ORDERED: ONDANSETRON HCL/PF 4 MG/2 ML VIAL IVP ONE (17:30)
[2018-03-13] MEDS ORDERED: MORPHINE SULFATE INJ 2 MG/ML DISP.SYRIN IV ONE ×2 (17:30→18:30)
--- NOTE | 2018-03-13 17:30 | NUR ---
CONDE CATH PLACED, PATIENT TOLERATED PROCEDURE
[2018-03-13] MEDS ORDERED: ONDANSETRON HCL/PF 4 MG/2 ML VIAL ONE (17:34)
[2018-03-13] MEDS ORDERED: MORPHINE SULFATE INJ 4 MG/ML DISP.SYRIN ONE ×2 (17:35→18:25)
[2018-03-13 17:40] LABS: ALANINE AMINOTRANSFERASE 23 U/L (12-78); ALBUMIN 3.4 g/dL (3.4-5.0); ALKALINE PHOSPHATASE 66 U/L (46-116); ASPARTATE AMINOTRANSFERASE 11 U/L (15-37); BILIRUBIN,DIRECT 0.1 mg/dL (0.0-0.2); BILIRUBIN,TOTAL 0.2 mg/dL (0.2-1.0); CALCIUM, SERUM 7.7 mg/dL (8.5-10.1); CARBON DIOXIDE 17 mmol/L (21-32); CHLORIDE 110 mmol/L (98-107); CREATININE 5.3 mg/dL (0.6-1.3); GLUCOSE 162 mg/dL (74-106); LIPASE 1365 U/L (73-393); SODIUM SERUM 139 mmol/L (136-145); TOTAL PROTEIN, SERUM 6.7 g/dL (6.4-8.2); UREA NITROGEN, BLOOD 76 mg/dL (7-18)
[2018-03-13 17:43] LABS: POTASSIUM 6.3 mmol/L (3.5-5.1)
[2018-03-13] MEDS ORDERED: FUROSEMIDE 40 MG/4 ML VIAL IV ONE (18:00)
[2018-03-13] MEDS ORDERED: SODIUM POLYSTYRENE SULFONATE 15 G/60 ML BOTTLE PO ONE ×2 (18:00→23:00)
[2018-03-13] MEDS ORDERED: SODIUM BICARBONATE SYR 50 MEQ/50 ML DISP.SYRIN IV ONE (18:00)
--- NOTE | 2018-03-13 18:00 | NUR ---
BICARB, KAYAXELATE AND LASIX GIVEN, K6.3
[2018-03-13] MEDS ORDERED: SODIUM BICARBONATE SYR 50 MEQ/50 ML DISP.SYRIN ONE (18:01)
[2018-03-13] MEDS ORDERED: SODIUM POLYSTYRENE SULFONATE 15 G/60 ML BOTTLE ONE (18:01)
[2018-03-13] MEDS ORDERED: FUROSEMIDE 40 MG/4 ML VIAL ONE (18:01)
[2018-03-13 18:22] LABS: APPEARANCE,URINE Clear (CLEAR); BILIRUBIN,URINE Negative (NEGATIVE); BLOOD, URINE Small Ery/uL (NEGATIVE); COLOR,URINE Yellow (YELLOW); KETONES,URINE Negative (NEGATIVE); LEUKOCYTE ESTERASE ,URINE Small (NEGATIVE); NITRITE, URINE Negative (NEGATIVE); PH,URINE 5.5 (5.0-8.0); PROTEIN,URINE Negative (NEGATIVE); UGLUCOSE Negative (NEGATIVE); UROBILINOGEN,URINE 0.2 EU/dL (0.2)
--- NOTE | 2018-03-13 18:27 | NUR ---
STILL WITH C/O ABDOMINAL PAIN, ORDERED ANOTHER DOSE OF MORPHINE 4MG
[2018-03-13 18:31] LABS: BACTERIA,URINE 1+ /HPF (None Seen); SQUAMOUS EPITHELIAL CELL,UR Few /HPF (None Seen)
[2018-03-13] MEDS ORDERED: LEVOFLOXACIN 500 MG /D5W 100ML 500 MG/100 ML PIGGYBACK IV ONE (19:00)
--- NOTE | 2018-03-13 19:49 | NUR ---
REPORT CALLED TO IMPROVEMENT ANALYSTJOYCELYN COX. WILL TRANSPORT PT VIA ACLS PROTOCOL.
[2018-03-13 20:30] VITALS: BP 159/96
--- NOTE | 2018-03-13 20:30 | NUR ---
PORTABLE FEED MILL OPERATOR RCD PT FROM ER W/DX RENAL FAILURE; PT IS A/Ox4; ABLE TO MAKE NEEDS KNOWN. PT REFUSES TO REMOVE CLOTHING UNDERNEATH GOWN. LEVAQUIN INFUSING. CALL PLACED TO DR MCCLAIN FOR ADMISSION ORDERS. PT DENIES PAIN.
[2018-03-13 21:00] VITALS: BP 160/77
[2018-03-13] MEDS ORDERED: TRAMADOL HCL 50 MG TABLET PO PRN (21:30)
[2018-03-13] MEDS ORDERED: DEXTROSE 50%-WATER 50 ML DISP.SYRIN IV PRN (21:30)
--- NOTE | 2018-03-13 21:30 | NUR ---
SALESPERSON FLYING SQUAD RCD ORDERS FROM DR MCCLAIN PT IS TO BE ADMITTED TO TELE STATUS BUT PER DR MCCLAIN KEEP PT IN ICU UNTIL SEEN BY DR MCCLAIN. KEEP PT NPO FOR x24 HRS DUE TO PANCREATITIS. PT UPDATED WITH PLAN OF CARE.
[2018-03-13 22:00] VITALS: BP 158/66
--- NOTE | 2018-03-13 22:00 | NUR ---
DRUMS TEACHER PT GETTING OUT OF BED MULTIPLE TIME; PULLING CONDE CATH AND WRIES. PT REORIENTED TO UNIT. ASSISTED TO CHAIR PT STATES HE CAN NOT SLEEP.
[2018-03-13 22:30] VITALS: BP 141/70
--- NOTE | 2018-03-13 22:30 | NUR ---
SUPERVISOR TREE FRUIT AND NUT FARMING PT REQUESTING A PILL TO SLEEP. CALL PLACED TO DR MCCLAIN.
[2018-03-13 23:00] VITALS: BP 121/67
[2018-03-13] MEDS ORDERED: LORAZEPAM 1 MG TABLET PO ONE (23:00)
[2018-03-13 23:30] VITALS: BP 158/85
--- NOTE | 2018-03-13 23:59 | NUR ---
JUNIOR WEB DEVELOPER ASSISTED PT TO BSC; UNSUCCESSFUL AT THIS TIME TO HAVE BM. NOTED PT FALLING ASLEEP ON BSC; ASSISTED PT BACK TO BED.
[2018-03-14] VITALS (46 sets, daily range): BP systolic 121–178; BP diastolic 52–115
--- NOTE | 2018-03-14 04:00 | NUR ---
RETAIL MERCHANDISER PT MORE COMPLIANT AT THIS TIME; AGREES TO REMOVE CLOTHING. DENIES PAIN.
[2018-03-14] MEDS: CLONIDINE HCL 0.1 MG TABLET PO SCH ×3 (04:52→21:39)
[2018-03-14 05:20] LABS: BASOPHILS # (AUTO) 0.1 /CMM (0.0-0.2); BASOPHILS % (AUTO) 1.4 % (0.0-2.0); EOSINOPHILS % (AUTO) 1.2 % (0.0-6.0); HEMATOCRIT 24 % (39-51); HEMOGLOBIN 7.7 g/dL (13.5-17.5); LYMPHOCYTES # (AUTO) 0.8 /CMM (0.8-4.8); LYMPHOCYTES % (AUTO) 8.7 % (20.0-44.0); MEAN CORPUSCULAR HGB CONC 32 g/dl (31.0-36.0); MEAN CORPUSCULAR VOLUME 83 fL (80-96); MONOCYTES # (AUTO) 0.9 /CMM (0.1-1.30); MONOCYTES % (AUTO) 9.8 % (2.0-12.0); NEUTROPHILS # (AUTO) 7.2 /CMM (1.8-8.9); NEUTROPHILS % (AUTO) 78.9 % (43.0-81.0); PLATELET COUNT (AUTO) 256 /CMM (150-450); WHITE BLOOD COUNT (AUTO) 9.2 K/uL (4.3-11.0)
[2018-03-14 05:34] LABS: IRON, SERUM 28 ug/dl (50-175)
[2018-03-14 05:35] LABS: AMYLASE 119 U/L (25-115); CALCIUM, SERUM 7.5 mg/dL (8.5-10.1); CARBON DIOXIDE 17 mmol/L (21-32); CHLORIDE 111 mmol/L (98-107); CREATININE 6.4 mg/dL (0.6-1.3); GLUCOSE 111 mg/dL (74-106); LIPASE 512 U/L (73-393); MAGNESIUM 1.7 mg/dL (1.8-2.4); POTASSIUM 5.5 mmol/L (3.5-5.1); SODIUM SERUM 143 mmol/L (136-145)
[2018-03-14 05:54] LABS: UREA NITROGEN, BLOOD 83 mg/dL (7-18)
--- NOTE | 2018-03-14 07:15 | NUR ---
RN NOTES PATIENT RECEIVED, RESTING COMFORTABLY IN BED, EASILY AROUSABLE DURING CARE, ABLE TO RESPOND APPROPRIATELY AND MAKE NEEDS KNOWN. RESPIRATIONS EVEN AND UNLABORED DENIES ANY PAIN OR DISCOMFORT AT THIS TIME. IV ACCESS TO RAC AND L WRIST PATENT AND INTACT NO REDNESS OR INFILTRATION NOTED. PT AWAITING CONSULT FROM DR. CAVAZOS AND MD VISIT FROM DR. MCCLAIN NPO AT THIS TIME UNTIL FURTHER ORDERS WILL CONTINUE TO MONITOR
[2018-03-14] MEDS: BLOOD SUGAR DIAGNOSTIC 1 EACH STRIP VI SCH ×4 (08:04→21:38)
[2018-03-14] MEDS: INSULIN REGULAR, HUMAN 100 UNIT/ML 3 ML VIAL SQ PRN ×2 (08:04→12:28)
[2018-03-14] MEDS: PANTOPRAZOLE 40 MG VIAL IV SCH (08:17)
[2018-03-14] MEDS: GABAPENTIN 100 MG CAPSULE PO SCH ×2 (08:17→17:09)
[2018-03-14] MEDS: CITRIC ACID/SODIUM CITRATE (BICITRA)15 ML UDC PO SCH ×4 (08:17→21:38)
[2018-03-14] MEDS: AMLODIPINE BESYLATE 5 MG TABLET PO SCH ×2 (08:18→21:39)
[2018-03-14] MEDS: MISOPROSTOL 100 MCG TABLET PO SCH ×4 (08:19→21:38)
[2018-03-14] MEDS: SOD FERRIC GLUC 125 MG in IV NS 0.9% 100 ML IV SCH (14:45)
[2018-03-14 15:04] LABS: BASOPHILS # (AUTO) 0.2 /CMM (0.0-0.2); BASOPHILS % (AUTO) 1.6 % (0.0-2.0); HEMATOCRIT 26 % (39-51); HEMOGLOBIN 8.1 g/dL (13.5-17.5); LYMPHOCYTES # (AUTO) 0.5 /CMM (0.8-4.8); LYMPHOCYTES % (AUTO) 4.7 % (20.0-44.0); MEAN CORPUSCULAR HGB CONC 31 g/dl (31.0-36.0); MEAN CORPUSCULAR VOLUME 84 fL (80-96); MONOCYTES % (AUTO) 9.3 % (2.0-12.0); NEUTROPHILS # (AUTO) 9.2 /CMM (1.8-8.9); NEUTROPHILS % (AUTO) 83.4 % (43.0-81.0); PLATELET COUNT (AUTO) 266 /CMM (150-450); RED BLOOD CELL COUNT(AUTO) 3.08 MIL/uL (4.5-6.0)
[2018-03-14 15:10] LABS: APPEARANCE,URINE SL CLOUDY (CLEAR); BILIRUBIN,URINE NEGATIVE (NEGATIVE); BLOOD, URINE 3+ Ery/uL (NEGATIVE); COLOR,URINE YELLOW (YELLOW); KETONES,URINE NEGATIVE (NEGATIVE); LEUKOCYTE ESTERASE ,URINE 1+ (NEGATIVE); NITRITE, URINE NEGATIVE (NEGATIVE); PROTEIN,URINE TRACE mg/dl (NEGATIVE); UGLUCOSE NEGATIVE (NEGATIVE); UROBILINOGEN,URINE 0.2 EU/dL (0.2)
[2018-03-14 15:15] LABS: BACTERIA,URINE None seen /HPF (None Seen)
[2018-03-14 15:16] LABS: RBC,URINE 21-50 /HPF (0-2); SQUAMOUS EPITHELIAL CELL,UR Rare /HPF (None Seen)
[2018-03-14 15:21] LABS: POTASSIUM 6.4 mmol/L (3.5-5.1)
[2018-03-14 15:24] LABS: CREATININE, URINE 39.8 MG/DL (30.0-125.0); URINE TOTAL PROTEIN 40.3 mg/dL (0-11.9)
[2018-03-14] MEDS ORDERED: SODIUM POLYSTYRENE SULFONATE 15 G/60 ML BOTTLE PO ONE (15:30)
[2018-03-14 16:39] LABS: EOSINOPHIL,URINE None Seen
--- NOTE | 2018-03-14 17:15 | NUR ---
RN NOTES PT SEEN AND EXAMINED BY DR MCCLAIN RELAYED PT STATUS WITH ORDERS FOR MAGNESIUM REPLACEMENT AND CONTINUE TO MONITOR AT THIS TIME SLIDING SCALE INSULIN HELD PT REFUSING DINNER AT THIS TIME WILL CONTINUE TO MONITOR
[2018-03-14] MEDS: Magnesium 1GM/D5W 100ML PREMIX 100 ML IV SCH ×2 (18:35→19:47)
--- NOTE | 2018-03-14 19:45 | NUR ---
RN NOTES PATIENT RESTING COMFORTABLY IN BED, EASILY AROUSABLE DURING CARE, ABLE TO RESPOND APPROPRIATELY AND MAKE NEEDS KNOWN. RESPIRATIONS EVEN AND UNLABORED DENIES ANY PAIN OR DISCOMFORT AT THIS TIME. IV ACCESS TO RAC AND L WRIST PATENT AND INTACT NO REDNESS OR INFILTRATION NOTED. PT AWAITING CONSULT FROM DR. CAVAZOS SEEN BY DR COLEMAN CONTINUE TO MONITOR PT WITH REFUSAL OF DIALYSIS TREATMENT AT THIS TIME RISKS AND BENEFITS EXPLAINED TO FAMILY, ENDORSED TO NEXT SHIFT FOR CONTINUITY OF CARE
[2018-03-14] MEDS: *INSULIN REGULAR(HUMULIN R)HUM 100 UNIT/ML VIAL SQ PRN (21:51)
--- NOTE | 2018-03-14 22:00 | NUR ---
WHIZZER OPERATOR PT VERY RESTLESS REQUESTING SLEEPING PILL; CALL PLACED TO DR MCCLAIN.
[2018-03-14] MEDS ORDERED: LORAZEPAM 1 MG TABLET PO ONE (23:00)
[2018-03-15] VITALS (57 sets, daily range): BP systolic 100–181; BP diastolic 45–118
[2018-03-15] MEDS: CLONIDINE HCL 0.1 MG TABLET PO SCH ×3 (04:54→21:00)
[2018-03-15 05:10] LABS: CREATINE KINASE, TOTAL 65 U/L (39-308)
[2018-03-15 05:16] LABS: ALANINE AMINOTRANSFERASE 23 U/L (12-78); ALKALINE PHOSPHATASE 72 U/L (46-116); ASPARTATE AMINOTRANSFERASE 17 U/L (15-37); BILIRUBIN,TOTAL 0.3 mg/dL (0.2-1.0); CALCIUM, SERUM 7.3 mg/dL (8.5-10.1); CARBON DIOXIDE 17 mmol/L (21-32); CHLORIDE 108 mmol/L (98-107); GLUCOSE 139 mg/dL (74-106); MAGNESIUM 2.1 mg/dL (1.8-2.4); PHOSPHORUS 5.7 mg/dL (2.5-4.9); POTASSIUM 4.8 mmol/L (3.5-5.1); SODIUM SERUM 142 mmol/L (136-145); TOTAL PROTEIN, SERUM 6.6 g/dL (6.4-8.2)
[2018-03-15 05:24] LABS: CREATININE 8.2 mg/dL (0.6-1.3); UREA NITROGEN, BLOOD 90 mg/dL (7-18)
[2018-03-15 05:42] LABS: ABG BASE EXCESS -12.3 mmol/L; ABG OXYGEN SATURATION 91.3 % (92.0-98.5); ABG PH 7.268 (7.350-7.450); ABG PO2 69.4 mmHg (75.0-100.0); AaDO2 94.8 mmHg; MetHb 0.9 % (0.0-1.5); O2Hb 90.5 % (94.0-97.0); SITE, ABG Left Radial; VENT MODE, BG NASAL CANNULA
[2018-03-15 05:43] LABS: BASOPHILS % (AUTO) 0.3 % (0.0-2.0); HEMATOCRIT 25 % (39-51); HEMOGLOBIN 7.9 g/dL (13.5-17.5); LYMPHOCYTES # (AUTO) 0.6 /CMM (0.8-4.8); LYMPHOCYTES % (AUTO) 3.8 % (20.0-44.0); MEAN CORPUSCULAR HGB CONC 31 g/dl (31.0-36.0); MEAN CORPUSCULAR VOLUME 85 fL (80-96); MONOCYTES # (AUTO) 1.2 /CMM (0.1-1.30); NEUTROPHILS # (AUTO) 12.7 /CMM (1.8-8.9); NEUTROPHILS % (AUTO) 87.9 % (43.0-81.0); PLATELET COUNT (AUTO) 280 /CMM (150-450); WHITE BLOOD COUNT (AUTO) 14.5 K/uL (4.3-11.0)
--- NOTE | 2018-03-15 05:51 | NUR ---
EMERGENCY MEDICAL TECHNICIAN BASIC PT NOTED WITH HR 130s AND LABORED BREATHING; PT PLACED ON O2 2L VIA NC; ABG PH 7.268 PCO2 30 PO2 69 HCO3 13.4. CALL PLACED TO DR MCCLAIN FOR FURTHER ORDERS.
--- NOTE | 2018-03-15 06:45 | NUR ---
FLORAL ASSISTANT MULTIPLE CALLS PLACED TO DR MCCLAIN; NO RETURN CALL.
--- NOTE | 2018-03-15 07:30 | NUR ---
MULTIPLE ATTEMPTS TO CALL DR. FLORES REGARDING PATIENT CHANGE OF CONDITION. AFIB WITH RVR -RATE 130'S. INCREASED BP WITH NO RESPONSE FROM MD. NURSING ADMINISTRATION MADE AWARE AT THIS TIME.
--- NOTE | 2018-03-15 07:41 | NUR ---
RN NOTES/MD CALL DR. MCCLAIN CALLED BACK ABG RESULTS AND KIDNEY FUNCTION TESTS RELAYED TO WELL CBC AND CHEMISTRY AND WITH ORDERS OF 2 PRBC ON STAND BY, CXR, NO FURTHER ORDERS, PER DR. MCCLAIN PT IS FULL CODE AND HE WILL TALK TO FAMILY AND CALL BACK, WILL CONTINUE TO MONITOR PT AND RELAY STATUS THROUGHOUT DAY
--- NOTE | 2018-03-15 08:00 | NUR ---
RN NOTES PATIENT RECEIVED, RESTING COMFORTABLY IN BED, PT AROUSABLE TO PAINFUL STIMULI AND DEEP TOUCH, ABLE TO RESPOND APPROPRIATELY AND MAKE NEEDS KNOWN. PT WITH SHORTNESS OF BREATH DR. MCCLAIN ATTEMPTED TO BE CONTACTED SEVERAL TIMES BY NIGHT RN. DENIES ANY PAIN OR DISCOMFORT AT THIS TIME. IV ACCESS TO RAC AND L WRIST PATENT AND INTACT NO REDNESS OR INFILTRATION NOTED. PT AWAITING CONSULT FROM DR. CAVAZOS AND MD VISIT FROM DR. MCCLAIN, WILL CONTINUE TO ATTEMPT TO CALL AND CONTINUE TO MONITOR AT THIS TIME PT IS FULL CODE
[2018-03-15] MEDS ORDERED: SODIUM BICARBONATE SYR 50 MEQ/50 ML DISP.SYRIN IV ONE (08:30)
[2018-03-15] MEDS: BLOOD SUGAR DIAGNOSTIC 1 EACH STRIP VI SCH ×5 (08:37→21:12)
[2018-03-15] MEDS: PANTOPRAZOLE 40 MG VIAL IV SCH (08:59)
[2018-03-15] MEDS: CITRIC ACID/SODIUM CITRATE (BICITRA)15 ML UDC PO SCH ×4 (09:00→20:58)
[2018-03-15] MEDS: GABAPENTIN 100 MG CAPSULE PO SCH ×2 (09:00→17:00)
[2018-03-15] MEDS: DILTIAZEM HCL CD 240 MG PO SCH (09:00)
[2018-03-15] MEDS: MISOPROSTOL 100 MCG TABLET PO SCH ×4 (09:00→21:00)
--- NOTE | 2018-03-15 09:00 | NUR ---
RN NOTES PT NOTED WITH CONFUSION AND NOT FOLLOWING DIRECTIONS, MD AWARE, MD WILL DISCUSS WITH FAMILY OF NEED FOR HEMODIALYSIS
--- NOTE | 2018-03-15 09:49 | NUR ---
RN NOTES PO MEDS NON ADMIN PT NOT AWAKE AND ALERT ENOUGH TO FOLLOW DIRECTIONS DR MCCLAIN AND DR. CHEN AWARE OF PT STATUS WILL CONTINUE TO MONITOR
[2018-03-15] MEDS: ACETAMINOPHEN 650 MG/SUPP.RECT RC PRN ×2 (11:30→18:01)
--- NOTE | 2018-03-15 11:45 | NUR ---
RN NOTES UNABLE TO SCAN TYLENOL SUPPOSITORY ALREADY OPENED AND BARCODE PT WITH HIGH TEMP WILL CONTINUE TO MONITOR
[2018-03-15] MEDS: INSULIN REGULAR, HUMAN 100 UNIT/ML 3 ML VIAL SQ PRN ×2 (13:06→17:58)
[2018-03-15] MEDS: SOD FERRIC GLUC 125 MG in IV NS 0.9% 100 ML IV SCH (14:33)
--- NOTE | 2018-03-15 16:30 | NUR ---
RN NOTES DR MCCLAIN AWARE OF HIGH TEMPERATURE RANGE WITH BLOOD CULTURE ORDERS AWAITING RESULT, COOLING MEASURES AND TYLENOL PRN ORDERED
--- NOTE | 2018-03-15 17:00 | NUR ---
RN NOTES PT NPO AT THIS TIME MEALS AND PO MEDS HELD ORDERED, PT HAD BLOOD CULTURES DRAWN BEEN HAVING TEMPERATURE TYLENOL RECTALLY GIVEN ORDERED DR. MCCLAIN AWARE OF PTS STATUS
--- NOTE | 2018-03-15 17:20 | NUR ---
RN NOTES 1700 DR LOAIZA IN FACILITY PLACED RIGHT FEMORAL HEMODIALYSIS CATHETER NO COMPLICATIONS NOTED, TOLERATED WELL, PT TO HAVE DIALYSIS TREATMENT TONIGHT ORDERED BY DR CHEN
--- NOTE | 2018-03-15 17:30 | NUR ---
RN NOTES ABDOMEN ULTRASOUND RELAYED TO DR. MCCLAIN NO NEW ORDERS AT THIS TIME
--- NOTE | 2018-03-15 19:40 | NUR ---
RN NOTES PATIENT RESTING COMFORTABLY IN BED, PT AROUSABLE TO PAINFUL STIMULI AND DEEP TOUCH, ABLE TO RESPOND APPROPRIATELY AND MAKE NEEDS KNOWN. PT WITH SHORTNESS OF BREATH DR. MCCLAIN AWARE TO TITRATE O2 VIA NC FOR SPO2 92% DNI AT THIS TIME. IV ACCESS TO RAC AND L WRIST PATENT AND INTACT NO REDNESS OR INFILTRATION NOTED. PT AWAITING CONSULT FROM DR. CAVAZOS SEEN BY MD VISIT FROM DR. MCCLAIN, WILL CONTINUE TO MONITOR Addendum: 03/15/18 at 1942 by LIZZY OMALLEY RN RN NOTES ENDORSED TO NEXT SHIFT FOR CONTINUITY OF CARE
--- NOTE | 2018-03-15 21:00 | NUR ---
HD COMPLETED, 1000 ML OUT, PT TOLERATED WELL, BP WNL, PT IS AWAKE ALERT
[2018-03-16] VITALS (78 sets, daily range): BP systolic 89–142; BP diastolic 15–104
[2018-03-16 04:46] LABS: BASOPHILS % (AUTO) 0.2 % (0.0-2.0); HEMATOCRIT 25 % (39-51); HEMOGLOBIN 8.1 g/dL (13.5-17.5); LYMPHOCYTES # (AUTO) 0.6 /CMM (0.8-4.8); LYMPHOCYTES % (AUTO) 2.4 % (20.0-44.0); MEAN CORPUSCULAR HGB CONC 32 g/dl (31.0-36.0); MEAN CORPUSCULAR VOLUME 83 fL (80-96); MONOCYTES # (AUTO) 1.5 /CMM (0.1-1.30); MONOCYTES % (AUTO) 6.6 % (2.0-12.0); NEUTROPHILS # (AUTO) 21.3 /CMM (1.8-8.9); NEUTROPHILS % (AUTO) 90.8 % (43.0-81.0); PLATELET COUNT (AUTO) 232 /CMM (150-450); RED BLOOD CELL COUNT(AUTO) 3.08 MIL/uL (4.5-6.0); WHITE BLOOD COUNT (AUTO) 23.4 K/uL (4.3-11.0)
[2018-03-16] MEDS: CLONIDINE HCL 0.1 MG TABLET PO SCH ×3 (04:55→20:30)
[2018-03-16 05:03] LABS: ALANINE AMINOTRANSFERASE 30 U/L (12-78); ALBUMIN 2.3 g/dL (3.4-5.0); ALKALINE PHOSPHATASE 57 U/L (46-116); ASPARTATE AMINOTRANSFERASE 24 U/L (15-37); BILIRUBIN,TOTAL 0.4 mg/dL (0.2-1.0); CALCIUM, SERUM 7.1 mg/dL (8.5-10.1); CARBON DIOXIDE 21 mmol/L (21-32); CHLORIDE 103 mmol/L (98-107); GLUCOSE 132 mg/dL (74-106); MAGNESIUM 1.8 mg/dL (1.8-2.4); PHOSPHORUS 7.4 mg/dL (2.5-4.9); POTASSIUM 3.4 mmol/L (3.5-5.1); SODIUM SERUM 141 mmol/L (136-145)
[2018-03-16 05:06] LABS: CREATININE 8.7 mg/dL (0.6-1.3); UREA NITROGEN, BLOOD 83 mg/dL (7-18)
[2018-03-16] MEDS: BLOOD SUGAR DIAGNOSTIC 1 EACH STRIP VI SCH ×4 (07:30→21:40)
[2018-03-16] MEDS: ACETAMINOPHEN 650 MG/SUPP.RECT RC PRN ×2 (07:55→17:29)
[2018-03-16] MEDS ORDERED: LEVOFLOXACIN 500 MG /D5W 100ML 500 MG in PREMIX 1 EA IV SCH (09:30)
--- NOTE | 2018-03-16 09:30 | NUR ---
PER DR FLORES, VANCO 1 [facility] TO DOSE VANCOMYCIN PHARMACY TO DOSE ZOSYN. DR FLORES NOTIFIED OF PATIENT'S ALLERGY. PER DR FLORES, DISCONTINUE ZOYSN OK TO START PATIENT ON LEVAQUIN [address] FLORES NOTIFIED OF ULTRASOUND RESULTS. PER DR MCCLAIN, RESUME DIET OF CCHO AND STANDARD RENAL PER MD, CONTINUE MONITORING PATIENT IN ICU FOR ADDITIONAL DAY PER MD, PHYSICIAN CONSULTS- DR SALGADO, DR CAVAZOS, AND DR TOBIN VERBAL READBACK DONE
[2018-03-16] MEDS ORDERED: FEE PK DOSING 1 MIN EA MC ONE (09:42)
[2018-03-16] MEDS ORDERED: VANCOMYCIN 500 MG in IV D5W 100 ML IV PRN (10:00)
--- NOTE | 2018-03-16 10:12 | NUR ---
2 L output from HD will continue to monitor
--- NOTE | 2018-03-16 10:21 | NUR ---
patient refusing medications and breakfast. Benefits and risks explained will continue to offer patient saying " no medications"
[2018-03-16] MEDS ORDERED: VANCOMYCIN 1 GM in IV D5W 250 ML IV ONE (11:00)
[2018-03-16] MEDS: PANTOPRAZOLE 40 MG VIAL IV SCH (11:07)
[2018-03-16] MEDS: CITRIC ACID/SODIUM CITRATE (BICITRA)15 ML UDC PO SCH ×4 (11:12→20:29)
[2018-03-16] MEDS: ASPIRIN 81 MG TAB.CHEW PO SCH (11:12)
[2018-03-16] MEDS: GABAPENTIN 100 MG CAPSULE PO SCH ×2 (11:13→18:34)
[2018-03-16] MEDS: MISOPROSTOL 100 MCG TABLET PO SCH ×4 (11:13→20:29)
[2018-03-16] MEDS: DILTIAZEM HCL CD 240 MG PO SCH (12:29)
--- NOTE | 2018-03-16 12:38 | NUR ---
K BATH WITH HD PER HD RN
[2018-03-16] MEDS: LEVOFLOXACIN 250 MG /D5W 50 ML 250 MG in PREMIX 1 EA IV SCH (13:53)
--- NOTE | 2018-03-16 14:28 | NUR ---
client services representative consult requested by MD Grande for multiple admissions. Pt is a 82 year old male with multiple diagnosis (CVA, TIA, peripheral neuropathy, vertigo, cataracts, sinusitis, tonsillitis, otitis media, laryngitis, pharyngitis, Afib, CAD, CHF, HTN, HLD, COPD, bronchitis, pna, emphsema, pulm HTN, UTI, BPH, CRI, ARF, GERD, diverticulosis, GIB, gastritis, diarrhea, pancreatitis, cholelithiasis, cholecystitis, chronic low back pain, OA, osteoporosis, DM, hypothyroidism, Anxiety, depression, and sleep disorders). Per H&P pts current admissions is due to worsening back pain/ left sided abdominal pain, anorexia, worsening memory, and dysuria. Pt's notes indicate that Dr. Grande has recently spoken with pts family regarding benefits of dialysis however pts family has elected to not have pt begin dialysis. Pt's multiple admissions are a result of his current diagnosis.
[2018-03-16] MEDS: MEROPENEM 500 MG in IV NS 0.9% 50 ML IV SCH (15:15)
[2018-03-16] MEDS: SOD FERRIC GLUC 125 MG in IV NS 0.9% 100 ML IV SCH (17:38)
--- NOTE | 2018-03-16 18:53 | NUR ---
occult blood stool collected per Dr Mortensen, stools noted to be tarry, jelly like
--- NOTE | 2018-03-16 19:30 | NUR ---
CONDE CATHETER NOTED TO BE LEAKING. REMOVED AND NEW CONDE CATHETER INSERTED PER STERILE TECHNIQUE NO URINE OUTPUT NOTED. PATIENT RECEIVED HD WITH 2 L TODAY PATIENT INSISTED ON CONDE CATHETER REMOVAL. CONDE CATHETER REMOVED. FAMILY AGREEING. PATIENT AND FAMILY EDUCATED REGARDING STRICT IS AND OS MULTIPLE TIMES WILL CONTINUE TO MONITOR PATIENT ENDORSED TO ALEXUS HIRSCH
--- NOTE | 2018-03-16 19:56 | NUR ---
ENDORSED PATIENT TO ALEXUS RN FALL PRECAUTIONS IMPLEMENTED. BED ALARM ON. PATIENT EDUCATED BEAD CUTTER LIGHT USAGE HIDA SCAN CONSENT SIGNED AND PLACED IN CHART. LEFT A VOICEMAIL FOR GILBERTO FROM NUCLEAR MEDICINE REGARDING TIME OF SCAN. ENDORSED TO FARMHAND RN TO FOLLOW UP WITH HIM TOMORROW PATIENT REFUSING DINNER, OFFERED JUICE AND SNACKS \ IV SITES PATENT AND INTACT PATIENT AFIB WITH BBB ON TELE MONITOR COOLING MEASURES AND TYLENOL ADMINISTERED PER ORDERS THROUGHOUT SHIFT NONLABORED BREATHING NOTED ON 2 L NASAL CANNULA
--- NOTE | 2018-03-16 20:00 | NUR ---
RN NOTE RECEIVED PATIENT FROM PHILIP HIRSCH, PATIENT IS AWAKE, ALERT/ORIENTED X 2, EDUCATED PATIENT TO USE CALL LIGHT, BED ALARM ON, ALL SAFETY MEASURES TAKEN, WILL CONTINUE TO MONITOR PATIENT Addendum: 03/16/18 at 2142 by EDOUARD CHOUDHARY RN FEBRILE 100.0F, NURSE ADMINISTERED TYLENOL SUPP. EARLIER, WILL CONTINUE TO MONITOR
--- NOTE | 2018-03-16 20:30 | NUR ---
RN NOTE RECHECKED TEMPERATURE 99.3F, PATIENT IS ALERT/ORIENTED X 2, REFUSED ICE PACKS, EXPLAINED ALL RISKS AND BENEFITS, STILL REFUSED
[2018-03-16 21:19] LABS: OCCULT BLOOD STOOL POSITIVE (NEGATIVE)
[2018-03-17] VITALS (29 sets, daily range): BP systolic 99–139; BP diastolic 44–69
[2018-03-17] MEDS: MEROPENEM 500 MG in IV NS 0.9% 50 ML IV SCH ×2 (01:50→14:06)
[2018-03-17] MEDS: CLONIDINE HCL 0.1 MG TABLET PO SCH ×2 (04:40→12:43)
[2018-03-17] MEDS: ACETAMINOPHEN 650 MG/SUPP.RECT RC PRN (04:41)
--- NOTE | 2018-03-17 06:56 | NUR ---
RN NOTE FALL PRECAUTIONS IMPLEMENTED. BED ALARM ON. PATIENT EDUCATED EDITORIAL CARTOONIST LIGHT USAGE. LEFT A MESSAGE FOR GILBERTO FROM NUCLEAR MEDICINE TO FIND OUT TIME OF SCAN. WILL ENDORSE TO AM SHIFT TO CONTINUE CARE
[2018-03-17 07:01] LABS: BASOPHILS # (AUTO) 0.1 /CMM (0.0-0.2); BASOPHILS % (AUTO) 0.3 % (0.0-2.0); EOSINOPHILS % (AUTO) 0.1 % (0.0-6.0); HEMATOCRIT 26 % (39-51); HEMOGLOBIN 8.3 g/dL (13.5-17.5); LYMPHOCYTES # (AUTO) 0.6 /CMM (0.8-4.8); LYMPHOCYTES % (AUTO) 3.2 % (20.0-44.0); MEAN CORPUSCULAR HGB CONC 32 g/dl (31.0-36.0); MEAN CORPUSCULAR VOLUME 82 fL (80-96); MONOCYTES % (AUTO) 5.4 % (2.0-12.0); NEUTROPHILS # (AUTO) 17.5 /CMM (1.8-8.9); PLATELET COUNT (AUTO) 233 /CMM (150-450); RED BLOOD CELL COUNT(AUTO) 3.16 MIL/uL (4.5-6.0); WHITE BLOOD COUNT (AUTO) 19.3 K/uL (4.3-11.0)
[2018-03-17 07:10] LABS: ALANINE AMINOTRANSFERASE 24 U/L (12-78); ALBUMIN 2.2 g/dL (3.4-5.0); ALKALINE PHOSPHATASE 57 U/L (46-116); ASPARTATE AMINOTRANSFERASE 21 U/L (15-37); BILIRUBIN,TOTAL 0.3 mg/dL (0.2-1.0); CALCIUM, SERUM 6.8 mg/dL (8.5-10.1); CARBON DIOXIDE 22 mmol/L (21-32); CHLORIDE 99 mmol/L (98-107); GLUCOSE 86 mg/dL (74-106); SODIUM SERUM 139 mmol/L (136-145); TOTAL PROTEIN, SERUM 6.1 g/dL (6.4-8.2)
[2018-03-17 07:12] LABS: CREATININE 8.8 mg/dL (0.6-1.3); UREA NITROGEN, BLOOD 81 mg/dL (7-18)
--- NOTE | 2018-03-17 07:15 | NUR ---
RN NOTE NOTIFIED ALLAN LOWE DNP OF POTASSIUM 2.5, NEW ORDER IS GIVEN AND CARRIED OUT
[2018-03-17 07:17] LABS: POTASSIUM 2.5 mmol/L (3.5-5.1)
[2018-03-17] MEDS ORDERED: POTASSIUM CHLORIDE 20 MEQ TAB.PRT.SR PO ONE (07:30)
[2018-03-17] MEDS: BLOOD SUGAR DIAGNOSTIC 1 EACH STRIP VI SCH ×4 (07:30→22:00)
[2018-03-17] MEDS: PANTOPRAZOLE 40 MG VIAL IV SCH (08:45)
[2018-03-17] MEDS: DILTIAZEM HCL CD 240 MG PO SCH (08:46)
[2018-03-17] MEDS: CITRIC ACID/SODIUM CITRATE (BICITRA)15 ML UDC PO SCH ×4 (08:46→17:49)
[2018-03-17] MEDS: GABAPENTIN 100 MG CAPSULE PO SCH ×2 (08:46→17:49)
[2018-03-17] MEDS: ASPIRIN 81 MG TAB.CHEW PO SCH (08:47)
[2018-03-17] MEDS: MISOPROSTOL 100 MCG TABLET PO SCH ×4 (09:00→17:49)
--- NOTE | 2018-03-17 10:14 | NUR ---
RN NOTE 0720: Received patient resting, A/Ox2 with confusion. PIVs intact. On 2LPM of O2 via NC tolerated. With right fem HD cath intact. 0800: Spoke with Himanshu from [place], said he might have the HIDA scan about noon time, its ok to give breakfast, offered patient but refused. Meds given as ordered. Held ASA for SOB +. 0820: S/E by Dr. Beltran, ok to transfer to tele. 0950: Cleaned patient and went to commode. 1010: Transferred patient via bed. Endorsed to JOYCELYN Portillo for MELISSA.
[2018-03-17] MEDS: SOD FERRIC GLUC 125 MG in IV NS 0.9% 100 ML IV SCH (15:29)
[2018-03-17] MEDS: LACTOBACILLUS RHAMNOSUS GG 1 EACH CAP.SPRINK PO SCH (17:49)
[2018-03-17] MEDS: ACETAMINOPHEN 325 MG TABLET PO PRN (19:07)
[2018-03-17] MEDS ORDERED: VANCOMYCIN 1 GM in IV D5W 250 ML IV ONE (22:00)
[2018-03-18] VITALS: BP 111/48
[2018-03-18] MEDS: MISOPROSTOL 100 MCG TABLET PO SCH ×6 (00:50→21:54)
[2018-03-18] MEDS: CLONIDINE HCL 0.1 MG TABLET PO SCH ×5 (00:51→21:00)
[2018-03-18] MEDS: CITRIC ACID/SODIUM CITRATE (BICITRA)15 ML UDC PO SCH ×6 (00:51→21:54)
[2018-03-18] MEDS: *INSULIN REGULAR(HUMULIN R)HUM 100 UNIT/ML VIAL SQ PRN ×3 (01:12→22:37)
[2018-03-18] MEDS: MEROPENEM 500 MG in IV NS 0.9% 50 ML IV SCH ×2 (01:14→13:17)
[2018-03-18 04:00] VITALS: BP 121/53
[2018-03-18] MEDS ORDERED: VANCOMYCIN 500 MG in IV D5W 100 ML IV PRN (06:00)
--- NOTE | 2018-03-18 06:13 | NUR ---
RN NOTES IN BED WITH NO DISTRESS NOTED. KEPT ON JUMPING OUT OF BED X [address]ULLING OUT TUBINGS. DR GILBERT ORDERED WRIST RESTRAINT. NOTED AND CARRIED OUT. NO SIGNIFICANT CHANGE OF CONDITION. WILL ENDORSE TO NEXT SHIFT FOR CONTINUITY OF CARE.
[2018-03-18 07:13] LABS: CALCIUM, SERUM 6.7 mg/dL (8.5-10.1); CARBON DIOXIDE 23 mmol/L (21-32); CHLORIDE 104 mmol/L (98-107); GLUCOSE 133 mg/dL (74-106); SODIUM SERUM 143 mmol/L (136-145); UREA NITROGEN, BLOOD 69 mg/dL (7-18)
[2018-03-18 07:22] LABS: CREATININE 7.8 mg/dL (0.6-1.3); POTASSIUM 2.8 mmol/L (3.5-5.1)
[2018-03-18 08:00] VITALS: BP_SYST 124; BP_SYST 169; BP_DIAS 59; BP_DIAS 74
[2018-03-18] MEDS: PANTOPRAZOLE 40 MG VIAL IV SCH (08:49)
[2018-03-18] MEDS: DILTIAZEM HCL CD 240 MG PO SCH (08:50)
[2018-03-18] MEDS: BLOOD SUGAR DIAGNOSTIC 1 EACH STRIP VI SCH ×4 (08:50→22:37)
[2018-03-18] MEDS: ASPIRIN 81 MG TAB.CHEW PO SCH (08:50)
[2018-03-18] MEDS: LACTOBACILLUS RHAMNOSUS GG 1 EACH CAP.SPRINK PO SCH ×2 (08:51→17:00)
[2018-03-18] MEDS: GABAPENTIN 100 MG CAPSULE PO SCH ×2 (08:51→17:00)
[2018-03-18] MEDS: ACETAMINOPHEN 325 MG TABLET PO PRN (10:11)
[2018-03-18] MEDS: LEVOFLOXACIN 250 MG /D5W 50 ML 250 MG in PREMIX 1 EA IV SCH (10:11)
[2018-03-18] MEDS: SOD FERRIC GLUC 125 MG in IV NS 0.9% 100 ML IV SCH (15:45)
[2018-03-18 16:00] VITALS: BP 121/34
[2018-03-18 17:45] VITALS: BP 95/36
[2018-03-18 20:10] VITALS: BP 106/47
[2018-03-19] MEDS: MEROPENEM 500 MG in IV NS 0.9% 50 ML IV SCH ×2 (01:27→14:17)
[2018-03-19 04:00] VITALS: BP 106/69
[2018-03-19 04:41] VITALS: BP 109/69
[2018-03-19] MEDS: CLONIDINE HCL 0.1 MG TABLET PO SCH (05:00)
[2018-03-19 06:25] LABS: BASOPHILS % (AUTO) 0.2 % (0.0-2.0); EOSINOPHILS % (AUTO) 0.6 % (0.0-6.0); HEMATOCRIT 25 % (39-51); HEMOGLOBIN 7.8 g/dL (13.5-17.5); LYMPHOCYTES # (AUTO) 0.4 /CMM (0.8-4.8); LYMPHOCYTES % (AUTO) 2.4 % (20.0-44.0); MEAN CORPUSCULAR HGB CONC 31 g/dl (31.0-36.0); MEAN CORPUSCULAR VOLUME 82 fL (80-96); MONOCYTES # (AUTO) 1.1 /CMM (0.1-1.30); MONOCYTES % (AUTO) 6.6 % (2.0-12.0); NEUTROPHILS % (AUTO) 90.2 % (43.0-81.0); PLATELET COUNT (AUTO) 265 /CMM (150-450); RED BLOOD CELL COUNT(AUTO) 3.05 MIL/uL (4.5-6.0); WHITE BLOOD COUNT (AUTO) 16.6 K/uL (4.3-11.0)
--- NOTE | 2018-03-19 06:41 | NUR ---
RN NOTE PATIENT IS IN BED, ALERT/ORIENTED X 1, AWAKE, NO DISTRESS NOTED, SPEAKS MAURITANIAN/EMIRATI, ABLE TO COMMUNICATE NEEDS HOWEVER WITH PERIODS OF CONFUSION, BED ALARM IS ON, ALL SAFETY MEASURES TAKEN, WILL ENDORSE TO AM SHIFT TO CONTINUE CARE
[2018-03-19 06:46] LABS: ALANINE AMINOTRANSFERASE 19 U/L (12-78); ALKALINE PHOSPHATASE 55 U/L (46-116); ASPARTATE AMINOTRANSFERASE 12 U/L (15-37); BILIRUBIN,TOTAL 0.2 mg/dL (0.2-1.0); CALCIUM, SERUM 6.7 mg/dL (8.5-10.1); CARBON DIOXIDE 21 mmol/L (21-32); CHLORIDE 104 mmol/L (98-107); GLUCOSE 132 mg/dL (74-106); SODIUM SERUM 144 mmol/L (136-145); TOTAL PROTEIN, SERUM 6.1 g/dL (6.4-8.2)
[2018-03-19 07:36] LABS: POTASSIUM 2.5 mmol/L (3.5-5.1); UREA NITROGEN, BLOOD 85 mg/dL (7-18)
[2018-03-19 07:37] LABS: CREATININE 9.5 mg/dL (0.6-1.3)
[2018-03-19 07:39] LABS: EOSINOPHILS % (MANUAL) 1 % (0-4); LYMPHOCYTES % (MANUAL) 3 % (16-48); MONOCYTES % (MANUAL) 7 % (0-11.0); NEUTROPHILS % (MANUAL) 89 (42-76)
[2018-03-19 08:00] VITALS: BP 122/62
[2018-03-19] MEDS: PANTOPRAZOLE 40 MG VIAL IV SCH (08:56)
[2018-03-19] MEDS: ASPIRIN 81 MG TAB.CHEW PO SCH (08:57)
[2018-03-19] MEDS: DILTIAZEM HCL CD 240 MG PO SCH (08:57)
[2018-03-19] MEDS: GABAPENTIN 100 MG CAPSULE PO SCH ×2 (08:58→16:56)
[2018-03-19] MEDS: LACTOBACILLUS RHAMNOSUS GG 1 EACH CAP.SPRINK PO SCH ×2 (08:58→16:56)
[2018-03-19] MEDS: BLOOD SUGAR DIAGNOSTIC 1 EACH STRIP VI SCH ×4 (08:58→22:17)
[2018-03-19] MEDS: CITRIC ACID/SODIUM CITRATE (BICITRA)15 ML UDC PO SCH ×4 (08:58→20:51)
[2018-03-19] MEDS: MISOPROSTOL 100 MCG TABLET PO SCH ×4 (08:59→20:51)
[2018-03-19] MEDS: INSULIN REGULAR, HUMAN 100 UNIT/ML 3 ML VIAL SQ PRN ×2 (09:12→12:50)
[2018-03-19] MEDS: POTASSIUM CL. PREMIX PERIPHER. 50 ML IV SCH ×2 (10:02→11:26)
[2018-03-19 12:00] VITALS: BP 113/68
[2018-03-19 16:00] VITALS: BP 123/61
--- NOTE | 2018-03-19 18:33 | NUR ---
MS/RN CLOSING NOTE THE PATIENT ALERT AND ORIENTED X1. DENIES SOB. IN ROOM AIR AND SATURATION AT 95%. RESPIRATION REGULAR AND UNLABORED. DENIES PAIN. THE PATIENT IN NO APPARENT DISTRESS.RAC G 20 PATENT AND SALINE LOCKED. LEFT WRIST G 18 PATENT AND SALINE LOCKED. PATIENT GETTING DIALYSIS AT THIS TIME. BED LOW AND LOCKED. SIDE RAILS UP X3. CALL LIGHT WITHIN REACH. WILL ENDORSE TO SPINNER IRON.
[2018-03-19 20:00] VITALS: BP 141/81
[2018-03-19] MEDS: *INSULIN REGULAR(HUMULIN R)HUM 100 UNIT/ML VIAL SQ PRN (22:18)
[2018-03-20] MEDS: MEROPENEM 500 MG in IV NS 0.9% 50 ML IV SCH ×2 (01:41→13:41)
[2018-03-20 04:00] VITALS: BP 150/86
[2018-03-20 07:00] LABS: BASOPHILS % (AUTO) 0.2 % (0.0-2.0); EOSINOPHILS % (AUTO) 0.7 % (0.0-6.0); HEMATOCRIT 26 % (39-51); HEMOGLOBIN 8.3 g/dL (13.5-17.5); LYMPHOCYTES # (AUTO) 0.6 /CMM (0.8-4.8); LYMPHOCYTES % (AUTO) 4.5 % (20.0-44.0); MEAN CORPUSCULAR HGB CONC 32 g/dl (31.0-36.0); MEAN CORPUSCULAR VOLUME 82 fL (80-96); MONOCYTES # (AUTO) 1.2 /CMM (0.1-1.30); MONOCYTES % (AUTO) 8.2 % (2.0-12.0); NEUTROPHILS # (AUTO) 12.2 /CMM (1.8-8.9); NEUTROPHILS % (AUTO) 86.4 % (43.0-81.0); PLATELET COUNT (AUTO) 267 /CMM (150-450); RED BLOOD CELL COUNT(AUTO) 3.15 MIL/uL (4.5-6.0); WHITE BLOOD COUNT (AUTO) 14.1 K/uL (4.3-11.0)
[2018-03-20 07:04] LABS: ALANINE AMINOTRANSFERASE 16 U/L (12-78); ALKALINE PHOSPHATASE 57 U/L (46-116); ASPARTATE AMINOTRANSFERASE 14 U/L (15-37); BILIRUBIN,TOTAL 0.3 mg/dL (0.2-1.0); CALCIUM, SERUM 6.7 mg/dL (8.5-10.1); CARBON DIOXIDE 23 mmol/L (21-32); CHLORIDE 103 mmol/L (98-107); GLUCOSE 124 mg/dL (74-106); MAGNESIUM 2.1 mg/dL (1.8-2.4); PHOSPHORUS 5.4 mg/dL (2.5-4.9); SODIUM SERUM 143 mmol/L (136-145); TOTAL PROTEIN, SERUM 6.1 g/dL (6.4-8.2); UREA NITROGEN, BLOOD 73 mg/dL (7-18)
--- NOTE | 2018-03-20 07:10 | NUR ---
MS RN NOTE PATIENT RECEIVED IN BED EATING BREAKFAST WITH THE ASSISTANCE OF THE HOSPITALIST NOCTURNIST PHYSICIAN. PATIENT SHOWS NO S/S OF RESPIRATORY DISTRESS, PAIN FOR DISCOMFORT. PATIENT IS AAOX1 WITH R AC. BED IS IN LOWEST LOCKED POSITION, SIDE RAILS UPS X 3, CALL LIGHT AT BEDSIDE.
[2018-03-20 07:13] LABS: CREATININE 8.7 mg/dL (0.6-1.3); POTASSIUM 2.3 mmol/L (3.5-5.1)
--- NOTE | 2018-03-20 07:20 | NUR ---
MS HIRSCH NOT LAB REPORTED TO RN PATIENT POTASSIUM IS 2.3. RN NOTIFIED PT FOLLOWING MD OWUSU, BUT RECEIVED NO REPLY. PATIENT'S PRIMARY WAS THEN NOTIFIED AND ORDERED 20 MEQ TO BE GIVEN TO THE PATIENT NOW. Addendum: 03/20/18 at 1126 by JORGE ALBERTO OLEARY RN Pcp at time was Harjinder.
[2018-03-20 08:00] VITALS: BP 135/58
[2018-03-20] MEDS: BLOOD SUGAR DIAGNOSTIC 1 EACH STRIP VI SCH ×4 (08:20→22:27)
[2018-03-20] MEDS: PANTOPRAZOLE 40 MG VIAL IV SCH (08:21)
[2018-03-20] MEDS: CITRIC ACID/SODIUM CITRATE (BICITRA)15 ML UDC PO SCH ×4 (08:23→22:26)
[2018-03-20] MEDS: GABAPENTIN 100 MG CAPSULE PO SCH ×2 (08:23→17:07)
[2018-03-20] MEDS: ASPIRIN 81 MG TAB.CHEW PO SCH (08:23)
[2018-03-20] MEDS: DILTIAZEM HCL CD 240 MG PO SCH (08:23)
[2018-03-20] MEDS: LACTOBACILLUS RHAMNOSUS GG 1 EACH CAP.SPRINK PO SCH ×2 (08:24→17:07)
[2018-03-20] MEDS: MISOPROSTOL 100 MCG TABLET PO SCH ×4 (08:24→22:26)
[2018-03-20] MEDS ORDERED: POTASSIUM CHLORIDE 10 MEQ/50 ML PREMIXED IVPB FOR PERIPHERAL LINE IV ONE (09:00)
[2018-03-20] MEDS: POTASSIUM CL. PREMIX PERIPHER. 50 ML IV SCH ×2 (09:34→11:07)
[2018-03-20 10:05] LABS: LYMPHOCYTES % (MANUAL) 3 % (16-48); MONOCYTES % (MANUAL) 11 % (0-11.0); NEUTROPHILS % (MANUAL) 83 (42-76)
[2018-03-20 10:06] LABS: EOSINOPHILS % (MANUAL) 2 % (0-4)
--- NOTE | 2018-03-20 10:30 | NUR ---
MS RN NOTE DURING PATIENT LINEN CHANGE, BED BATH, TURN AND REPOSITIONING PATIENT WAS NOTED TO HAVE THIN WATERY STOOL. MD BOSTON WAS NOTIFIED, BIRD SITTER KATHERYN WAS NOTIFIED, AND STOOL SAMPLE WAS SENT INTO LAB WITH FORM.
--- NOTE | 2018-03-20 11:30 | NUR ---
MS RN NOTE POTASSIUM REPLACEMENT COMPLETED ORDERED
[2018-03-20 12:00] VITALS: BP 126/60
--- NOTE | 2018-03-20 12:30 | NUR ---
MS RN NOTE PATIENT BS 134. ACCORDING TO SLIDING SCALE PATIENT IS SUPPOSED TO RECEIVE 2 UNITS OF INSULIN. PATIENT HOWEVER DENIES LUNCH AND REFUSES TO EAT. MD NOTIFIED INSULIN HELD PER MD ORDER.
[2018-03-20 16:00] VITALS: BP 129/62
--- NOTE | 2018-03-20 19:45 | NUR ---
MICHELLE RN NOTE RECEIVED PATIENT ALERT AND ORIENTED X1 IN BED. DENIES SOB AND ANY PAIN AT THIS TIME. ON 2L O2 VIA NC AND SATURATION AT 95%. RESPIRATION REGULAR AND UNLABORED.PATIENT IN NO APPARENT DISTRESS. RAC G 20 PATENT AND SALINE LOCKED. RIGHT FEMORAL HD PORT IS IN PLACE. BED IN LOW AND LOCKED POSITION. SIDE RAILS UP X3. CALL LIGHT WITHIN REACH.PATIENT IS TURNED AND REPOSITIONED. WILL CONTINUE TO MONITOR.
[2018-03-20 20:00] VITALS: BP 140/64
[2018-03-20] MEDS: ACETAMINOPHEN 325 MG TABLET PO PRN (22:26)
[2018-03-21] MEDS: MEROPENEM 500 MG in IV NS 0.9% 50 ML IV SCH ×2 (02:19→13:31)
[2018-03-21 04:00] VITALS: BP 135/55
--- NOTE | 2018-03-21 07:33 | NUR ---
MS RN NOTE PATIENT RECEIVED IN BED SLEEPING X1. PATIENT DENIES S/S OF PAIN, SOB//CHEST PAIN AT THIS TIME. PATIENT ON 2L O2. PATIENT HAS LEFT HAND 20 G PATIENT AND FLUSHED. SIDE RAILS UP X 3, BED IN LOWEST LOCKED POSITION, CALL LIGHT WITHIN REACH. PATIENT STOOLED FOR THE SECOND TIME IN 24 HOURS, WAITING FOR THIRD STOOL TO SEND TO LAB. RN WILL CONTINUE TO MONITOR AND TURN AND REPOSITION Q 2 HOURS.
[2018-03-21] MEDS: BLOOD SUGAR DIAGNOSTIC 1 EACH STRIP VI SCH ×4 (07:55→21:31)
[2018-03-21 08:00] VITALS: BP 134/82
[2018-03-21] MEDS: INSULIN REGULAR, HUMAN 100 UNIT/ML 3 ML VIAL SQ PRN ×2 (08:04→12:23)
[2018-03-21 08:11] LABS: CALCIUM, SERUM 6.2 mg/dL (8.5-10.1); CARBON DIOXIDE 21 mmol/L (21-32); CHLORIDE 103 mmol/L (98-107); GLUCOSE 148 mg/dL (74-106); SODIUM SERUM 146 mmol/L (136-145)
[2018-03-21 08:12] LABS: UREA NITROGEN, BLOOD 87 mg/dL (7-18)
[2018-03-21 08:13] LABS: CREATININE 9.4 mg/dL (0.6-1.3); POTASSIUM 2.4 mmol/L (3.5-5.1)
[2018-03-21] MEDS: ASPIRIN 81 MG TAB.CHEW PO SCH (09:16)
[2018-03-21] MEDS: MISOPROSTOL 100 MCG TABLET PO SCH ×4 (09:16→21:31)
[2018-03-21] MEDS: PANTOPRAZOLE 40 MG VIAL IV SCH (09:16)
[2018-03-21] MEDS: LACTOBACILLUS RHAMNOSUS GG 1 EACH CAP.SPRINK PO SCH ×2 (09:16→17:45)
[2018-03-21] MEDS: GABAPENTIN 100 MG CAPSULE PO SCH ×2 (09:16→17:45)
[2018-03-21] MEDS: CITRIC ACID/SODIUM CITRATE (BICITRA)15 ML UDC PO SCH ×4 (09:16→21:31)
[2018-03-21] MEDS: DILTIAZEM HCL CD 240 MG PO SCH (09:17)
--- NOTE | 2018-03-21 09:34 | NUR ---
MS RN NOTE PATIENT POTASSIUM 2.4 REPORTED BY LAB TO RN. FOLLOWING MD NOTIFIIED TWICE IN 30 MIN. CHAIN OF COMMAND INITIATED. GUTTER INSTALLER VIRGEN SPOKE TO HEMODIALYSIS NURSE TO REPLACE POTASSIUM DURING HD. STILL NO RESPONSE FROM MD. RN WILL CONTINUE TO MONITOR CLOSELY. HD STARTED AT 0930
--- NOTE | 2018-03-21 11:48 | NUR ---
MS RN NOTE STOOL SAMPLE TAKEN TO LAB WITH FORM SIGNED AND VERIFIED BY GUZZLER BUILDER AMY. SCOTT COLLECTED STOOL SAMPLE AND LOGGED IT.
--- NOTE | 2018-03-21 11:49 | NUR ---
MS RN NOTE MD BOSTON NOW AWARE OF PT HYPOKALEMIA ORDERED POTASSIUM TABLETS TO BE GIVEN TO REPLACE.
[2018-03-21] MEDS: POTASSIUM CHLORIDE 20 MEQ TAB.PRT.SR PO SCH ×4 (12:26→15:41)
[2018-03-21 16:00] VITALS: BP 105/50
[2018-03-21] MEDS: VANCOMYCIN HCL 125 MG/2.5 ML ORAL.SUSP PO SCH (17:45)
[2018-03-21 20:00] VITALS: BP 121/40
[2018-03-21 20:51] VITALS: BP 121/40
[2018-03-22] MEDS: VANCOMYCIN HCL 125 MG/2.5 ML ORAL.SUSP PO SCH ×3 (00:23→11:25)
[2018-03-22] MEDS: MEROPENEM 500 MG in IV NS 0.9% 50 ML IV SCH ×2 (01:15→14:22)
[2018-03-22 04:00] VITALS: BP 129/61
[2018-03-22 07:29] LABS: BASOPHILS % (AUTO) 0.2 % (0.0-2.0); EOSINOPHILS % (AUTO) 1.6 % (0.0-6.0); HEMATOCRIT 26 % (39-51); HEMOGLOBIN 8.1 g/dL (13.5-17.5); LYMPHOCYTES # (AUTO) 0.7 /CMM (0.8-4.8); LYMPHOCYTES % (AUTO) 5.4 % (20.0-44.0); MEAN CORPUSCULAR HGB CONC 31 g/dl (31.0-36.0); MEAN CORPUSCULAR VOLUME 84 fL (80-96); MONOCYTES # (AUTO) 1.4 /CMM (0.1-1.30); MONOCYTES % (AUTO) 11.2 % (2.0-12.0); NEUTROPHILS # (AUTO) 10.3 /CMM (1.8-8.9); NEUTROPHILS % (AUTO) 81.6 % (43.0-81.0); PLATELET COUNT (AUTO) 319 /CMM (150-450); RED BLOOD CELL COUNT(AUTO) 3.12 MIL/uL (4.5-6.0); WHITE BLOOD COUNT (AUTO) 12.6 K/uL (4.3-11.0)
--- NOTE | 2018-03-22 07:30 | NUR ---
PT RECEIVED RESTING COMFORTABLY IN BED. NO S/S OR C/O PAIN OR DISTRESS NOTED. SIDE RAILS UP X2, CALL LIGHT LEFT WITHIN REACH. WILL CONTINUE PLAN OF CARE.
[2018-03-22 07:43] LABS: CARBON DIOXIDE 20 mmol/L (21-32); CHLORIDE 106 mmol/L (98-107); GLUCOSE 146 mg/dL (74-106); MAGNESIUM 2.2 mg/dL (1.8-2.4); PHOSPHORUS 5.9 mg/dL (2.5-4.9); SODIUM SERUM 147 mmol/L (136-145); UREA NITROGEN, BLOOD 79 mg/dL (7-18)
[2018-03-22 07:56] LABS: CALCIUM, SERUM 5.8 mg/dL (8.5-10.1); POTASSIUM 2.6 mmol/L (3.5-5.1)
[2018-03-22 08:00] VITALS: BP 135/54
[2018-03-22] MEDS: BLOOD SUGAR DIAGNOSTIC 1 EACH STRIP VI SCH ×4 (08:00→22:03)
--- NOTE | 2018-03-22 08:00 | NUR ---
MED HELD INSULIN. BS 138. PT REFUSED BREAKFAST.
--- NOTE | 2018-03-22 09:00 | NUR ---
PT REFUSED MED BICITRA. RN TEACHING PERFORMED TO EXPLAIN SIGNIFICANCE BUT PT CONTINUES TO REFUSE
[2018-03-22] MEDS: MISOPROSTOL 100 MCG TABLET PO SCH ×4 (09:24→21:11)
[2018-03-22] MEDS: GABAPENTIN 100 MG CAPSULE PO SCH ×2 (09:25→17:01)
[2018-03-22] MEDS: DILTIAZEM HCL CD 240 MG PO SCH (09:25)
[2018-03-22] MEDS: PANTOPRAZOLE 40 MG VIAL IV SCH (09:25)
[2018-03-22] MEDS: CITRIC ACID/SODIUM CITRATE (BICITRA)15 ML UDC PO SCH ×4 (09:26→21:11)
[2018-03-22] MEDS: ASPIRIN 81 MG TAB.CHEW PO SCH (09:26)
[2018-03-22] MEDS: LACTOBACILLUS RHAMNOSUS GG 1 EACH CAP.SPRINK PO SCH ×2 (09:26→17:01)
[2018-03-22] MEDS ORDERED: POTASSIUM CHLORIDE 20 MEQ TAB.PRT.SR PO ONE (10:30)
[2018-03-22] MEDS: POTASSIUM CL. PREMIX PERIPHER. 50 ML IV SCH ×4 (11:00→17:01)
[2018-03-22] MEDS: LISINOPRIL (10MG) 10 MG TABLET PO SCH (11:25)
[2018-03-22] MEDS: CALCIUM CARB 600MG /VIT D 1 EACH TABLET PO SCH (11:25)
[2018-03-22] MEDS: INSULIN REGULAR, HUMAN 100 UNIT/ML 3 ML VIAL SQ PRN (11:34)
--- NOTE | 2018-03-22 12:43 | NUR ---
PT REFUSED BRAD MONTOYA. RN TEACHING PERFORMED TO EXPLAIN SIGNIFICANCE BUT PT CONTINUES TO REFUSE. Addendum: 03/22/18 at 1245 by IGNACIA CARVALHO RN WRONG TIME.
[2018-03-22 16:00] VITALS: BP 124/61
--- NOTE | 2018-03-22 18:23 | NUR ---
CHANGE OF SHIFT REPORT PT RESTING COMFORTABLY IN BED WITH EYES CLOSED. NO S/S OR C/O PAIN OR DISTRESS NOTED. SIDE RAILS UP X2, CALL LIGHT LEFT WITHIN REACH. PT KEPT CLEAN, DRY, AND COMFORTABLE. NO SIGNIFICANT CHANGES SINCE PREVIOUS SHIFT. WILL GIVE REPORT TO BONG HIRSCH.
[2018-03-22 20:00] VITALS: BP 134/60
[2018-03-22] MEDS: *INSULIN REGULAR(HUMULIN R)HUM 100 UNIT/ML VIAL SQ PRN (22:03)
[2018-03-23] MEDS: MEROPENEM 500 MG in IV NS 0.9% 50 ML IV SCH ×2 (02:05→13:01)
[2018-03-23 04:00] VITALS: BP 138/63
[2018-03-23] MEDS: BLOOD SUGAR DIAGNOSTIC 1 EACH STRIP VI SCH ×4 (07:30→21:43)
[2018-03-23 07:33] LABS: BASOPHILS # (AUTO) 0.1 /CMM (0.0-0.2); BASOPHILS % (AUTO) 0.5 % (0.0-2.0); EOSINOPHILS % (AUTO) 1.3 % (0.0-6.0); HEMATOCRIT 26 % (39-51); HEMOGLOBIN 8.4 g/dL (13.5-17.5); LYMPHOCYTES # (AUTO) 0.8 /CMM (0.8-4.8); LYMPHOCYTES % (AUTO) 5.6 % (20.0-44.0); MEAN CORPUSCULAR HGB CONC 32 g/dl (31.0-36.0); MEAN CORPUSCULAR VOLUME 83 fL (80-96); MONOCYTES # (AUTO) 1.3 /CMM (0.1-1.30); MONOCYTES % (AUTO) 9.9 % (2.0-12.0); NEUTROPHILS # (AUTO) 11.2 /CMM (1.8-8.9); NEUTROPHILS % (AUTO) 82.7 % (43.0-81.0); PLATELET COUNT (AUTO) 358 /CMM (150-450); RED BLOOD CELL COUNT(AUTO) 3.19 MIL/uL (4.5-6.0); WHITE BLOOD COUNT (AUTO) 13.5 K/uL (4.3-11.0)
[2018-03-23 08:00] VITALS: BP 132/70
[2018-03-23 08:04] LABS: CALCIUM, SERUM 6.3 mg/dL (8.5-10.1); CARBON DIOXIDE 19 mmol/L (21-32); CHLORIDE 108 mmol/L (98-107); GLUCOSE 123 mg/dL (74-106); MAGNESIUM 2.2 mg/dL (1.8-2.4); PHOSPHORUS 6.8 mg/dL (2.5-4.9); POTASSIUM 2.9 mmol/L (3.5-5.1); SODIUM SERUM 148 mmol/L (136-145)
[2018-03-23 08:07] LABS: CREATININE 11.6 mg/dL (0.6-1.3); UREA NITROGEN, BLOOD 81 mg/dL (7-18)
--- NOTE | 2018-03-23 08:38 | NUR ---
WOUND CARE CONSULT: PT PRESENTS WITH BLANCHABLE REDNESS TO SACRAL/BUTTOCKS AREA AND SOME SKIN STAINING. PT INCONTINENT OF LOOSE STOOL. ALL SKIN PROTECTION RECOMMENDATIONS DISCUSSED WITH NURSING STAFF. CURRENT KRISTINA SCORE IS 15. WILL SEE PRN. TAYLOR IN AGREEMENT WITH PLAN OF CARE. Addendum: 03/23/18 at 0840 by NADEEN BETTS WNDNU Amended: Links added.
[2018-03-23] MEDS: LACTOBACILLUS RHAMNOSUS GG 1 EACH CAP.SPRINK PO SCH ×2 (08:54→17:07)
[2018-03-23] MEDS: ASPIRIN 81 MG TAB.CHEW PO SCH (08:54)
[2018-03-23] MEDS: CALCIUM CARB 600MG /VIT D 1 EACH TABLET PO SCH (08:54)
[2018-03-23] MEDS: DILTIAZEM HCL CD 240 MG PO SCH (08:56)
[2018-03-23] MEDS: LISINOPRIL (10MG) 10 MG TABLET PO SCH (08:56)
[2018-03-23] MEDS: CITRIC ACID/SODIUM CITRATE (BICITRA)15 ML UDC PO SCH ×4 (08:56→20:11)
[2018-03-23] MEDS: GABAPENTIN 100 MG CAPSULE PO SCH ×2 (08:56→17:07)
[2018-03-23] MEDS ORDERED: Z GUARD REMEDY 2 OZ OINT TP PRN (09:00)
[2018-03-23 09:16] LABS: BAND % (MANUAL) 2 % (0.0-5.0); LYMPHOCYTES % (MANUAL) 9 % (16-48); METAMYELOCYTES % 1 % (0-0); MONOCYTES % (MANUAL) 7 % (0-11.0); MYELOCYTES % 5 % (0-0); NEUTROPHILS % (MANUAL) 76 (42-76)
[2018-03-23] MEDS: PANTOPRAZOLE 40 MG VIAL IV SCH (09:31)
[2018-03-23] MEDS: MISOPROSTOL 100 MCG TABLET PO SCH ×4 (09:59→20:11)
[2018-03-23] MEDS: Z GUARD REMEDY 2 OZ OINT TP SCH (09:59)
[2018-03-23 13:00] VITALS: BP 108/54
[2018-03-23] MEDS ORDERED: EPOETIN ALFA (10,000 UNIT) 10,000 UNIT/ML VIAL IV ONE (15:00)
[2018-03-23 16:00] VITALS: BP_SYST 108; BP_SYST 133; BP_DIAS 54; BP_DIAS 78
[2018-03-23] MEDS ORDERED: POTASSIUM CHLORIDE 20 MEQ TAB.PRT.SR PO ONE (16:30)
[2018-03-23] MEDS ORDERED: POTASSIUM CL. PREMIX PERIPHER. 50 ML IV SCH (16:30)
--- NOTE | 2018-03-23 18:34 | NUR ---
Patient c/o of R hand pain around IV insertion site during Potassium IV administration. IV potassium stopped and message left for Dr. Caldwell regarding patient status. No s/s of infiltration noted other than verbal confirmation of pain during assessment. Pending further orders from MD. Notified oncoming shift of patient status.
--- NOTE | 2018-03-23 18:47 | NUR ---
Permacath placement ordered for tomorrow morning. Family notified by phone and will be here in the morning to sign consent. Notified oncoming nurse.
--- NOTE | 2018-03-23 18:51 | NUR ---
Dr Caldwell die cast die maker new telephone ordered received and read back to d'c current IV potassium and keep PO potassium order. Notified oncoming nurse of new order.
[2018-03-23 20:00] VITALS: BP 137/59
[2018-03-23] MEDS: *INSULIN REGULAR(HUMULIN R)HUM 100 UNIT/ML VIAL SQ PRN (21:43)
[2018-03-24] VITALS (8 sets, daily range): BP systolic 108–151; BP diastolic 21–70
--- NOTE | 2018-03-24 00:21 | NUR ---
RN NOTES GAVE REPORT AND PATIENT TO JOCYELYN LARA
--- NOTE | 2018-03-24 00:22 | NUR ---
RN NOTES Received report from JOYCELYN Obando for assume of care of this patient. Patient on bed, awake, confused, combative, and yelling to anybody coming in the room. Bed low and locked, siderails x2 up. Will continue to monitor accordingly.
[2018-03-24] MEDS: MEROPENEM 500 MG in IV NS 0.9% 50 ML IV SCH (01:19)
[2018-03-24] MEDS: BLOOD SUGAR DIAGNOSTIC 1 EACH STRIP VI SCH ×4 (06:44→22:35)
--- NOTE | 2018-03-24 06:49 | NUR ---
MS RN CLOSING NOTES Patient asleep on bed on supine position. With patent peripheral IV left hand G#20, SL. BS - 122 no insulin coverage. For R femoral HD cath removal and don cath placement. No discomfort at this time. On O2 via NC @ 2LPM, no SOB/respiratory distress noted. All needs attended. Due meds given as ordered. No new unusualities noted. Kept bed low and locked. Call light within easy reach. Endorsed to the next shift.
--- NOTE | 2018-03-24 08:18 | NUR ---
OR count team member verbalized understanding patient son will not sign for procedure until he talks to someone about the anesthesia.
[2018-03-24] MEDS: ASPIRIN 81 MG TAB.CHEW PO SCH (09:00)
[2018-03-24] MEDS: Z GUARD REMEDY 2 OZ OINT TP SCH (09:00)
[2018-03-24] MEDS: MISOPROSTOL 100 MCG TABLET PO SCH ×4 (09:00→22:34)
[2018-03-24] MEDS: LISINOPRIL (10MG) 10 MG TABLET PO SCH (09:00)
[2018-03-24] MEDS: CITRIC ACID/SODIUM CITRATE (BICITRA)15 ML UDC PO SCH ×4 (09:00→22:35)
[2018-03-24] MEDS: CALCIUM CARB 600MG /VIT D 1 EACH TABLET PO SCH (09:00)
[2018-03-24] MEDS: GABAPENTIN 100 MG CAPSULE PO SCH ×2 (09:00→16:44)
[2018-03-24] MEDS: LACTOBACILLUS RHAMNOSUS GG 1 EACH CAP.SPRINK PO SCH ×2 (09:00→16:44)
[2018-03-24] MEDS: DILTIAZEM HCL CD 240 MG PO SCH (09:00)
[2018-03-24] MEDS: PANTOPRAZOLE 40 MG VIAL IV SCH (09:54)
[2018-03-24 10:11] LABS: BASOPHILS # (AUTO) 0.2 /CMM (0.0-0.2); BASOPHILS % (AUTO) 1.1 % (0.0-2.0); EOSINOPHILS % (AUTO) 1.4 % (0.0-6.0); HEMATOCRIT 27 % (39-51); HEMOGLOBIN 8.7 g/dL (13.5-17.5); LYMPHOCYTES # (AUTO) 0.7 /CMM (0.8-4.8); LYMPHOCYTES % (AUTO) 5.1 % (20.0-44.0); MEAN CORPUSCULAR HGB CONC 32 g/dl (31.0-36.0); MEAN CORPUSCULAR VOLUME 83 fL (80-96); MONOCYTES # (AUTO) 1.1 /CMM (0.1-1.30); MONOCYTES % (AUTO) 7.6 % (2.0-12.0); NEUTROPHILS # (AUTO) 11.9 /CMM (1.8-8.9); NEUTROPHILS % (AUTO) 84.8 % (43.0-81.0); PLATELET COUNT (AUTO) 409 /CMM (150-450); RED BLOOD CELL COUNT(AUTO) 3.32 MIL/uL (4.5-6.0); WHITE BLOOD COUNT (AUTO) 14.1 K/uL (4.3-11.0)
[2018-03-24 10:23] LABS: BILIRUBIN,DIRECT 0.1 mg/dL (0.0-0.2); BILIRUBIN,TOTAL 0.2 mg/dL (0.2-1.0)
[2018-03-24 10:26] LABS: ALANINE AMINOTRANSFERASE 11 U/L (12-78); ALBUMIN 1.9 g/dL (3.4-5.0); ALKALINE PHOSPHATASE 56 U/L (46-116); ASPARTATE AMINOTRANSFERASE 18 U/L (15-37); BILIRUBIN,TOTAL 0.2 mg/dL (0.2-1.0); CALCIUM, SERUM 6.3 mg/dL (8.5-10.1); CARBON DIOXIDE 20 mmol/L (21-32); CHLORIDE 109 mmol/L (98-107); GLUCOSE 132 mg/dL (74-106); POTASSIUM 3.1 mmol/L (3.5-5.1); SODIUM SERUM 147 mmol/L (136-145); TOTAL PROTEIN, SERUM 6.2 g/dL (6.4-8.2)
[2018-03-24 10:33] LABS: CREATININE 10.8 mg/dL (0.6-1.3); UREA NITROGEN, BLOOD 80 mg/dL (7-18)
[2018-03-24] MEDS ORDERED: LIDOCAINE HCL/PF 1% 30 ML SDV ONE (10:38)
[2018-03-24 10:45] LABS: LYMPHOCYTES % (MANUAL) 7 % (16-48); METAMYELOCYTES % 1 % (0-0); MONOCYTES % (MANUAL) 10 % (0-11.0); MYELOCYTES % 2 % (0-0); NEUTROPHILS % (MANUAL) 80 (42-76)
[2018-03-24] MEDS ORDERED: POTASSIUM CHLORIDE 10 MEQ/50 ML PREMIXED IVPB FOR PERIPHERAL LINE IV STA (11:21)
[2018-03-24] MEDS ORDERED: HEPARIN SODIUM, PORCINE 1,000 UNIT/ML VIAL ONE (11:36)
[2018-03-24] MEDS: POTASSIUM CL. PREMIX PERIPHER. 50 ML IV SCH ×2 (11:43→12:46)
--- NOTE | 2018-03-24 20:00 | NUR ---
RN NOTES Received patient's bedside report from am RN for care of this patient. Patient on bed, awake, confused, combative, and yelling to anybody coming in the room.on o2 via nc with spo2 of 100%, co complains of pain , no sob, no discomfort at this time.iv line on lefr hand is patient, intact. right chest wall hd new catheter site is bleeding and dressing is soaked in blood. Bed low and locked, side rails x2 up. Will continue to monitor accordingly.
[2018-03-24] MEDS ORDERED: MEROPENEM 500 MG in IV NS 0.9% 50 ML IV SCH (23:00)
[2018-03-25 04:00] VITALS: BP 146/74
--- NOTE | 2018-03-25 05:35 | NUR ---
rn notes patient is still bleeding from right chest wall HD catheter site, site has been cleaned and dressing reinforced x3 . called md SHANNAN SALMON and new order of blood draw for H/H is in place. will continue to monitor patient closely.
[2018-03-25 06:30] LABS: BASOPHILS # (AUTO) 0.1 /CMM (0.0-0.2); BASOPHILS % (AUTO) 0.8 % (0.0-2.0); EOSINOPHILS % (AUTO) 1.4 % (0.0-6.0); HEMATOCRIT 29 % (39-51); LYMPHOCYTES # (AUTO) 0.8 /CMM (0.8-4.8); LYMPHOCYTES % (AUTO) 4.9 % (20.0-44.0); MEAN CORPUSCULAR HGB CONC 31 g/dl (31.0-36.0); MEAN CORPUSCULAR VOLUME 84 fL (80-96); MONOCYTES % (AUTO) 6.2 % (2.0-12.0); NEUTROPHILS # (AUTO) 14.3 /CMM (1.8-8.9); NEUTROPHILS % (AUTO) 86.7 % (43.0-81.0); PLATELET COUNT (AUTO) 383 /CMM (150-450); RED BLOOD CELL COUNT(AUTO) 3.51 MIL/uL (4.5-6.0); WHITE BLOOD COUNT (AUTO) 16.5 K/uL (4.3-11.0)
--- NOTE | 2018-03-25 07:30 | NUR ---
RN NOTES RECEIVED PATIENT IN BED, A/O X1-2, WITH EPISODE OF CONFUSION, EXPRESS SELF MORE IN [place] LANGUAGE, BREATHING UNLABORED, ON OXYGEN SUPPORT VIA NASAL CANNULA AT 2 LPM, SATURATING WELL, SKIN WARM TO TOUCH,WITH CLOTTED BLOOD OVER THE CHEST WALL- IV CATH SITE. (PER NIGHT NURSE: PATIENT TRIED PULLING TUBINGS) SITE DRESSING REINFORCED. PER CHARGE NURSE- WILL WAIT FOR DIALYSIS NURSE TO CHECK ON THE HD CATH SITE. BILATERAL ARM ON SOFT RESTRAINTS, SKIN ASSESSED: NO SKIN BREAKDOWN OR DISCOLORATION NOTED, PULSES PALPABLE, FINGERS MOVES FREELY. SAFETY MEASURES OBSERVED AND MAINTAINED, SRx3, BED LOW AND LOCKED POSITIONED, CALL LIGHT WITHIN EASY REACH, WILL MONITOR PATIENT ACCORDINGLY
[2018-03-25 08:00] VITALS: BP 146/71
[2018-03-25] MEDS: LISINOPRIL (10MG) 10 MG TABLET PO SCH (09:00)
[2018-03-25] MEDS: DILTIAZEM HCL CD 240 MG PO SCH (09:00)
[2018-03-25] MEDS: CITRIC ACID/SODIUM CITRATE (BICITRA)15 ML UDC PO SCH ×3 (09:47→18:11)
[2018-03-25] MEDS: ASPIRIN 81 MG TAB.CHEW PO SCH (09:47)
[2018-03-25] MEDS: BLOOD SUGAR DIAGNOSTIC 1 EACH STRIP VI SCH ×3 (09:47→18:12)
[2018-03-25] MEDS: PANTOPRAZOLE 40 MG VIAL IV SCH (09:47)
[2018-03-25] MEDS: LACTOBACILLUS RHAMNOSUS GG 1 EACH CAP.SPRINK PO SCH ×2 (09:48→18:12)
[2018-03-25] MEDS: GABAPENTIN 100 MG CAPSULE PO SCH ×2 (09:48→18:12)
[2018-03-25] MEDS: MISOPROSTOL 100 MCG TABLET PO SCH ×3 (09:48→18:12)
[2018-03-25] MEDS: CALCIUM CARB 600MG /VIT D 1 EACH TABLET PO SCH (09:48)
[2018-03-25] MEDS: Z GUARD REMEDY 2 OZ OINT TP SCH (11:02)
[2018-03-25] MEDS ORDERED: POTASSIUM CHLORIDE 20 MEQ TAB.PRT.SR PO ONE (11:30)
[2018-03-25 12:00] VITALS: BP 112/57
[2018-03-25] MEDS: INSULIN REGULAR, HUMAN 100 UNIT/ML 3 ML VIAL SQ PRN ×2 (13:11→18:14)
[2018-03-25] MEDS: CALCIUM ACETATE 667 MG TABLET PO SCH ×2 (13:13→18:12)
--- NOTE | 2018-03-25 14:00 | NUR ---
RN NOTES PATIENT HAD DIALYSIS TODAY, 1 LITER TAKEN OFF. PATIENT ABLE TO TOLERATE PROCEDURE WELL. NOT ON ANY FORM OF DISTRESS.
[2018-03-25 16:16] VITALS: BP 123/56
--- NOTE | 2018-03-25 20:07 | NUR ---
RN NOTES As per AM RN report, patient already discharged to [facility]. Son, Nathan, informed.
--- NOTE | 2018-03-25 20:10 | NUR ---
RN NOTES PATIENT DISCHARGED TO [facility]. OFFERED VACCINE BUT PER SON VACCINATION IS UPDATED. ALL FAMILY CONCERN AND QUESTIONS ADDRESSED APPROPRIATELY. ALL DISCHARGE AND MEDICATION INSTRUCTION GIVEN TO JOYCELYN LOWE OVER THE ENDORSEMENT ALL BELONGINGS ACCOUNTED FOR AND RETURNED TO FAMILY. BROUGHT HOME BY FAMILY. SKIN ISSUE PHOTOS TAKEN AND NOTED. ID BAND REMOVED. IV LINE REMOVED. PATIENT MADE CLEAN AND COMFORTABLE.
[2018-03-25] MEDS ORDERED: PANT40VI IV (20:46)
[2018-03-25] MEDS ORDERED: DILT240C88 PO (20:46)
[2018-03-25] MEDS ORDERED: Calcium Acetate PO (20:46)
[2018-03-25] MEDS ORDERED: Blood Sugar Diagnostic VI (20:46)
[2018-03-25] MEDS ORDERED: ACET650S11 RC (20:46)
[2018-03-25] MEDS ORDERED: TRAM50TA2 PO (20:46)
[2018-03-25] MEDS ORDERED: INSU100V28 SQ (20:46)
[2018-03-25] MEDS ORDERED: ALLA266C2 TP (20:46)
[2018-03-25] MEDS ORDERED: GABA100C PO (20:46)
[2018-03-25] MEDS ORDERED: LISI10TA59 PO (20:46)
[2018-03-25] MEDS ORDERED: MISO100T PO (20:46)
[2018-03-25] MEDS ORDERED: ASPI-1169 PO (20:46)
[2018-03-25] MEDS ORDERED: LACT1CAP72 PO (20:46)
[2018-03-25] MEDS ORDERED: CITR15SO PO (20:46)
== END 2018-03-25 20:47 | DRG 871 ==
LOC: ER 16:31 → ICU 19:42 → TELE1 03-17 09:56 → MEDSG1 03-18 09:14
PROVIDERS: ADMIT Family Medicine; ATTEND Family Medicine
PROC: 06HM33Z Insertion of Infusion Device into Right Femoral Vein, Percutaneous Approach (ICD-10-PCS; principal; 2018-03-15)
PROC: 5A1D70Z Performance of Urinary Filtration, Intermittent, Less than 6 Hours Per Day (ICD-10-PCS; 2018-03-15)
PROC: 5A1D70Z Performance of Urinary Filtration, Intermittent, Less than 6 Hours Per Day (ICD-10-PCS; 2018-03-16)
PROC: 5A1D70Z Performance of Urinary Filtration, Intermittent, Less than 6 Hours Per Day (ICD-10-PCS; 2018-03-17)
PROC: 5A1D70Z Performance of Urinary Filtration, Intermittent, Less than 6 Hours Per Day (ICD-10-PCS; 2018-03-19)
PROC: 5A1D70Z Performance of Urinary Filtration, Intermittent, Less than 6 Hours Per Day (ICD-10-PCS; 2018-03-21)
PROC: 5A1D70Z Performance of Urinary Filtration, Intermittent, Less than 6 Hours Per Day (ICD-10-PCS; 2018-03-23)
PROC: 0JH63XZ Insertion of Tunneled Vascular Access Device into Chest Subcutaneous Tissue and Fascia, Percutaneous Approach (ICD-10-PCS; 2018-03-24)
PROC: 02HV33Z Insertion of Infusion Device into Superior Vena Cava, Percutaneous Approach (ICD-10-PCS; 2018-03-24)
PROC: B518YZA Fluoroscopy of Superior Vena Cava using Other Contrast, Guidance (ICD-10-PCS; 2018-03-24)
PROC: 5A1D70Z Performance of Urinary Filtration, Intermittent, Less than 6 Hours Per Day (ICD-10-PCS; 2018-03-25)
DX: A41.9 Sepsis, unspecified organism (principal); K85.90 Acute pancreatitis without necrosis or infection, unspecified; I21.A1 Myocardial infarction type 2; N17.0 Acute kidney failure with tubular necrosis; G93.41 Metabolic encephalopathy; N18.6 End stage renal disease; E87.2 Acidosis; I13.2 Hypertensive heart and chronic kidney disease with heart failure and with stage 5 chronic kidney disease, or end stage renal disease; I50.32 Chronic diastolic (congestive) heart failure; J90 Pleural effusion, not elsewhere classified; N13.6 Pyonephrosis; C64.2 Malignant neoplasm of left kidney, except renal pelvis; D62 Acute posthemorrhagic anemia; K80.00 Calculus of gallbladder with acute cholecystitis without obstruction; E11.22 Type 2 diabetes mellitus with diabetic chronic kidney disease; E87.5 Hyperkalemia; E78.5 Hyperlipidemia, unspecified; G89.29 Other chronic pain; K21.0 Gastro-esophageal reflux disease with esophagitis; Z86.73 Personal history of transient ischemic attack (TIA), and cerebral infarction without residual deficits; Z87.891 Personal history of nicotine dependence; Z87.440 Personal history of urinary (tract) infections; I48.91 Unspecified atrial fibrillation; F41.9 Anxiety disorder, unspecified; F32.9 Major depressive disorder, single episode, unspecified; J44.9 Chronic obstructive pulmonary disease, unspecified; I25.10 Atherosclerotic heart disease of native coronary artery without angina pectoris; I48.2 Chronic atrial fibrillation; E03.9 Hypothyroidism, unspecified; E27.9 Disorder of adrenal gland, unspecified; K29.70 Gastritis, unspecified, without bleeding; Z88.0 Allergy status to penicillin; Z66 Do not resuscitate; Z79.01 Long term (current) use of anticoagulants; E11.36 Type 2 diabetes mellitus with diabetic cataract; G30.9 Alzheimer's disease, unspecified; F02.80 Dementia in other diseases classified elsewhere, unspecified severity, without behavioral disturbance, psychotic disturbance, mood disturbance, and anxiety; M81.0 Age-related osteoporosis without current pathological fracture; N40.1 Benign prostatic hyperplasia with lower urinary tract symptoms; R33.8 Other retention of urine; M54.5 Low back pain; G47.9 Sleep disorder, unspecified; Z87.01 Personal history of pneumonia (recurrent); D50.0 Iron deficiency anemia secondary to blood loss (chronic)
CPT/HCPCS: 36415; 36600; 71045-TC; 76700-TC; 78226; 80048-TC; 80053-TC; 80076-TC; 80202-TC; 81000-TC; 82140-TC; 82150-TC; 82247-TC; 82248-TC; 82272-TC; 82550-TC; 82570-TC; 82962-TC; 83540-TC; 83605-TC; 83690-TC; 83735-TC; 84100-TC; 84132-TC; 84155-TC; 84300-TC; 84484-TC; 85025-TC; 85610-TC; 85730-TC; 86706; 86803; 86850-TC; 86921-TC; 87040-TC; 87081-TC; 87086-TC; 87186-TC; 87340; 87806; 90935-TC; A4216; A4606; A6402; A6403; A9537; C1750; C9113; G0378; J0885; J1644; J1815; J1940; J1956; J2185; J2270; J2405; J2916; J3370; J3475; J3480; J3490; J7030; J7050; J7060; Z7610